=== PATIENT | female | born 1945 | race Caucasian/White ===

== ENCOUNTER 2017-02-23 19:34 | Emergency (ER) | payer MEDICARE, MEDICAID ==
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
[2017-02-23] MEDS ORDERED: Ondansetron ODT TAB* 4 MG PO ONE (21:03)
--- NOTE | 2017-02-23 21:34 | RAD ---
HISTORY: Pain, left foot injury COMPARISONS: None VIEWS: The, Frontal, lateral, and oblique views of the left foot FINDINGS: BONE DENSITY: There is diffuse osteopenia. BONES: There is no displaced fracture. There are calcaneal enthesophytes. JOINTS: There is osteoarthritis of the midfoot and forefoot. ALIGNMENT: There is no dislocation. SOFT TISSUES: Unremarkable. OTHER FINDINGS: None. IMPRESSION: OSTEOPENIA. OSTEOARTHRITIS. NO ACUTE OSSEOUS INJURY. THE DEGREE OF OSTEOPENIA MAY MAKE A NONDISPLACED FRACTURE RADIOGRAPHICALLY OCCULT. IF SYMPTOMS PERSIST, RECOMMEND REPEAT IMAGING.
[2017-02-23 22:03] VITALS: BP 170/81
== END 2017-02-23 23:14 | disposition home or self-care (01) ==
LOC: ED 19:34
DX: S90.32XA Contusion of left foot, initial encounter (principal); V89.1XXA Person injured in unspecified nonmotor-vehicle accident, nontraffic, initial encounter; Y93.9 Activity, unspecified; Y92.9 Unspecified place or not applicable
CPT/HCPCS: 99282; A9270-GY

== ENCOUNTER 2017-06-12 11:01 | Emergency (ER) | payer MEDICARE, MEDICAID ==
[2017-06-12] MEDS ORDERED: oxyCODONE/Acetamin 5/325 MG* TAB PO ONE (11:49)
[2017-06-12 11:51] LABS: Urine Appearance Clear; Urine Blood Negative (Negative); Urine Color Yellow; Urine Ketones Negative (Negative); Urine Protein Negative (Negative); Urine Specific Gravity 1.013 (1.010-1.030); Urine Urobilinogen Negative (Negative)
[2017-06-12 11:58] VITALS: BP 166/97
--- NOTE | 2017-06-12 12:33 | ED ---
Dago Lopez Thomas, scribed for Young Bass MD on 06/12/17 at 1133 . Abdominal Pain/Female - HPI Summary HPI Summary: The patient is a 72 year old female complaining of LLQ abdominal pain that began yesterday. The pain is rated 8/10. The patient had an episode of diarrhea about a week ago. The patient denies nausea, vomiting, and urinary symptoms. She also complains of lower back pain for the last few weeks. Past medical history includes 11 bouts of diverticulitis, and the patient describes the current pain as similar to prior diverticulitis pain. When I ask the patient if she wants imaging done, she prefers not to do imaging and treat her pain as diverticulitis. - History of Current Complaint Chief Complaint: EDAbdPain Stated Complaint: ABD PAIN Time Seen by Provider: 06/12/17 11:24 Hx Obtained From: Patient Onset/Duration: Lasting Days - 1, Still Present Timing: Constant Severity Currently: Moderate Pain Intensity: 8 Pain Scale Used: 0-10 Numeric Location: Discrete At: LLQ Radiates: No Character: Other: - Similar to prior diverticular pain Alleviating Factor(s): Nothing Associated Signs and Symptoms: Positive: Diarrhea. Negative: Fever, Nausea, Vomiting Simlar Episode/Dx as:: Prior diverticulitis Allergies/Adverse Reactions: Allergies Allergy/AdvReac Type Severity Reaction Status Date / Time Adhesive Tape Allergy Redness Verified 06/12/17 11:18 clarithromycin Allergy Muscle Ache Verified 06/12/17 11:18 rice Allergy THROAT Uncoded 06/12/17 11:18 CLOSES PMH/Surg Hx/FS Hx/Imm Hx Endocrine/Hematology History: Reports: Hx Diabetes - DIET CONTROLLED, Hx Systemic Lupus Erythematosus, Hx Thyroid Disease - HYPOTHYROID Cardiovascular History: Reports: Hx Hypercholesterolemia, Hx Hypertension - ON MEDICATION FOR, Hx Rheumatic Fever - A CHILD, Other Cardiovascular Problems/ Disorders - on ECG Denies: Hx Pacemaker/ICD Respiratory History: Reports: Hx Asthma - WILL BRING INHALER- NO PROBLEMS RECENTLY, Hx Sleep Apnea, Other Respiratory Problems/Disorders - sees pulmonogist, per patient lung function about 60% due SARCOIDOSIS GI History: Reports: Hx Diverticulosis, Hx Gall Bladder Disease - s/p cholecystectomy, Other GI Disorders - umbilical hernia, diverticulitis History: Reports: Other Problems/Disorders - HX OF PROBLEMS IN PAST- SEE DR. JUARES- STATES NO PROBLEMS CURRENTLY Musculoskeletal History: Reports: Hx Arthritis - KNEES, Hx Gout, Other Musculoskeletal History - (right) trigger thumb, s/p release 1999 Denies: Hx Osteoporosis Sensory History: Reports: Hx Cataracts - BILATERAL, Hx Contacts or Glasses, Hx Hearing Aid - not with pt, Hx Hearing Problem - left Opthamlomology History: Reports: Hx Cataracts - BILATERAL, Hx Contacts or Glasses Neurological History: Reports: Other Neuro Impairments/Disorders - LUPUS Psychiatric History: Denies: Hx Panic Disorder - Cancer History Cancer Type, Location and Year: skin, nose and chin, removed. rt breast cancer Hx Chemotherapy: Yes Hx Radiation Therapy: Yes - Surgical History Surgery Procedure, Year, and Place: [facility] - release (right) trigger thumb. 06/30 [facility] - mediastinal adenopathy. 06/03 [facility] - umbilical hernia;. all done in 1989 -Hysterectomy; fallopian tube (right) removal, Appendectomy;. Tubal 1981. CHOLECYSTECTOMY; LUMPECTOMY -BI-LATERAL; LYMPH NODE REMOVED. 11/2014, RECTOCELE, [facility]. removal of precancerous polyps, 2/3xs pt reports, prior to 1999. 10/2015-RIGHT BREAST LUMPECTOMY-SENTINEL NODE BIOPSY-[facility] [place] Hx Anesthesia Reactions: No Infectious Disease History: No Infectious Disease History: Denies: Hx of Known/Suspected MRSA, Traveled Outside the in Last 30 Days - Family History Known Family History: Positive: Cardiac Disease, Hypertension, Diabetes, Other - Positive breast CA for mother and sister - Social History Alcohol Use: None Hx Substance Use: No Substance Use Type: Reports: None Hx Tobacco Use: No Smoking Status (MU): Never Smoked Tobacco Have You Smoked in the Last Year: No Review of Systems Negative: Fever Positive: Abdominal Pain, Diarrhea. Negative: Vomiting, Nausea Positive: no symptoms reported All Other Systems Reviewed And Are Negative: Yes Physical Exam - Summary Physical Exam Summary: Appearance: The patient is well-nourished in no acute distress and in no acute pain. Skin: The skin is warm and dry and skin color reflects adequate perfusion. HEENT: The head is normocephalic and atraumatic. The pupils are equal and reactive. The conjunctivae are clear and without drainage. Nares are patent and without drainage. Mouth reveals moist mucous membranes and the throat is without erythema and exudate. The external ears are intact. The ear canals are patent and without drainage. The tympanic membranes are intact. Neck: the neck is supple with full range of motion and non-tender. There are no carotid bruits. There is no neck vein distension. Respiratory: Chest is non-tender. Lungs are clear to auscultation and breath sounds are symmetrical and equal. Cardiovascular: Heart is regular rate and rhythm. There is no murmur or rub auscultated. There is no peripheral edema and pulses are symmetrical and equal. Abdomen: The abdomen is soft. She is tender to her LLQ, although she also mildly tender to her RLQ and LUQ. There are decreased bowel sounds heard in all four quadrants and there is no organomegaly palpated. Musculoskeletal: There is no back tenderness noted. Extremities are non-tender with full range of motion. There is good capillary refill. There is no peripheral edema or calf tenderness elicited. Neurological: Patient is alert and oriented to person, place and time. The patient has symmetrical motor strength in all four extremities. Cranial nerves are grossly intact. Deep tendon reflexes are symmetrical and equal in all four extremities. Psychiatric: The patient has an appropriate affect and does not exhibit any anxiety or depression. Triage Information Reviewed: Yes Vital Signs On Initial Exam: Initial Vitals Temp Pulse Resp BP Pulse Ox 98.5 F 95 22 184/79 98 06/12/17 11:03 06/12/17 11:03 06/12/17 11:03 06/12/17 11:03 06/12/17 11:03 Vital Signs Reviewed: Yes Diagnostics - Vital Signs Vital Signs Temp Pulse Resp BP Pulse Ox 06/12/17 11:03 98.5 F 95 22 184/79 98 - Laboratory Lab Results: Lab Results 06/12/17 Range/Units 11:45 Urine Color Yellow Urine Appearance Clear Urine pH 7.0 (5-9) Ur Specific [place] 1.013 (1.010-1.030) Urine Protein Negative (Negative) Urine Ketones Negative (Negative) Urine Blood Negative (Negative) Urine Nitrate Negative (Negative) Urine Bilirubin Negative (Negative) Urine Urobilinogen Negative (Negative) Ur Leukocyte Esterase Negative (Negative) Urine Glucose Negative (Negative) Lab Statement: Any lab studies that have been ordered have been reviewed, and results considered in the medical decision making process. Abdominal Pain Fem Course/Dx - Course Course Of Treatment: Ms. Krishnan has had diverticulitis 10 times in the recent past and presents with the same symptom complex she has had before. She wants to be treated for diverticulitis and I think that is reasonable given the circumstances. I recommended close F/U in case we are mistaken. - Diagnoses Provider Diagnoses: Diverticulitis Discharge - Discharge Plan Condition: Stable Disposition: HOME Prescriptions: Ciprofloxacin TAB* [Cipro Tab*] 500 mg PO BID #20 tab metroNIDAZOLE [Flagyl 500 MG TAB] 500 mg PO TID #30 tab Patient Education Materials: Diverticulitis (ED), Diverticulitis Diet (ED) Referrals: Law Chapman MD [Primary Care Provider] - 7 Days Additional Instructions: Follow up with your primary care physician in the coming week. Return to the emergency department for any new or worsening symptoms. The documentation as recorded by the Dago denise Thomas accurately reflects the service I personally performed and the decisions made by me, Young Bass MD.
== END 2017-06-12 12:04 | disposition home or self-care (01) ==
LOC: ED 11:01
DX: K57.92 Diverticulitis of intestine, part unspecified, without perforation or abscess without bleeding (principal); Z88.3 Allergy status to other anti-infective agents
CPT/HCPCS: 81003; 99282; A9270-GY

== ENCOUNTER 2018-07-13 19:17 | Emergency (ER) | payer MEDICARE, MEDICAID ==
[2018-07-13 22:45] LABS: Hematocrit 38 % (33-41); Hemoglobin 13.2 g/dL (12.0-16.0); Mean Corpuscular HGB Conc 35 g/dL (31-36); Mean Corpuscular Hemoglobin 32 pg (27-31); Mean Corpuscular Volume 92 fL (80-97); Mean Platelet Volume 6.9 fL (7.4-10.4); Platelet Count 216 10^3/uL (150-450); Red Blood Count 4.11 10^6 /uL (3.70-4.87); Red Cell Distribution Width 15 % (10.5-15); White Blood Count 10.3 10^3/uL (3.5-10.8)
[2018-07-13 22:49] LABS: ABS Basophils 0.1 10^3/ul (0-0.2); ABS Eosinophils 0.3 10^3/ul (0-0.6); ABS Monocytes 0.8 10^3/ul (0-0.8); ABS Neutrophils 6.2 10^3/ul (1.5-7.7); ABS Nucleated RBC 0 10^3/ul; Eosinophil % 2.9 %; Lymphocyte % 29.3 %; Nucleated Red Blood Cells % 0
[2018-07-13 22:55] LABS: Albumin 4.1 g/dL (3.2-5.2); Albumin/Globulin Ratio 1.8 (1-3); BUN/Creatinine Ratio 11.9 (8-20); C Reactive Protein 4.31 mg/L (<8.01); Calcium 9.6 mg/dL (8.6-10.3); EGFR African American 80.9 (>60); EGFR Non-African American 66.8 (>60); Globulin 2.3 g/dL (2-4); Potassium 3.5 mmol/L (3.5-5.0); Total Bilirubin 1.6 mg/dL (0.2-1.0); Total Protein 6.4 g/dL (6.4-8.9)
[2018-07-13] MEDS ORDERED: Ondansetron INJ* 2 MG/ML VIAL IV ONE (23:24)
[2018-07-13] MEDS ORDERED: Morphine 4 MG/ML VIAL (1 ml) 4 MG/ML VIAL IV ONE (23:24)
[2018-07-13] MEDS ORDERED: NS 0.9% 1000 ML** 1,000 ML IV ONE (23:25)
--- NOTE | 2018-07-13 23:28 | ED ---
GI/ HPI - HPI Summary HPI Summary: This patient is a 73 year old F with PMHx of diverticulitis presenting to [facility] with a chief complaint of diverticulitis-like symptoms since a few days ago. The patient rates the pain 4/10 in severity. Patient reports flatulence, diarrhea for a few days (all night long last night, twice since here at [facility]), and diffuse lower abdominal pain. Patient denies vomiting and fever. She has not taken any antibiotics so far. - History of Current Complaint Chief Complaint: EDAbdPain Time Seen by Provider: 07/13/18 23:05 Stated Complaint: DIVERTICULITIS PER PT Hx Obtained From: Patient Onset/Duration: Started Days Ago, Still Present Timing: Constant, Lasting Days Pain Intensity: 4 Location of Pain: Diffuse - Lower abdominal Associated Signs and Symptoms: Positive: Diarrhea - for a few days (all night long last night, twice since here at [facility]), Abdominal Pain - Diffuse lower abdominal, Other: - Flatulence. Negative: Vomiting, Fever - Additional Pertinent History Primary Care Physician: EVERETT - Allergy/Home Medications Allergies/Adverse Reactions: Allergies Allergy/AdvReac Type Severity Reaction Status Date / Time Adhesive Tape AdvReac Redness Verified 07/13/18 19:56 clarithromycin AdvReac Muscle Ache Verified 07/13/18 19:56 rice Allergy THROAT Uncoded 07/13/18 19:56 CLOSES Home Medications: Home Medications Albuterol inh POWDER (NF) [Proair Respiclick] 2 puff INH SEE INSTRUCTIONS PRN [History Confirmed 07/14/18] Amlodipine Besylate [Norvasc] 10 mg PO DAILY 07/14/18 [History Confirmed ] Calcium Carbonate/Vitamin D3 [Calcium 500 + Vit D Caplet] 1 each PO BID [History Confirmed 07/14/18] Levothyroxine Sodium 150 mg PO DAILY 07/14/18 [History Confirmed 07/14/18] Losartan Potassium 100 mg PO DAILY 07/14/18 [History Confirmed 07/14/18] PMH/Surg Hx/FS Hx/Imm Hx Endocrine/Hematology History: Reports: Hx Diabetes - DIET CONTROLLED, Hx Systemic Lupus Erythematosus, Hx Thyroid Disease - HYPOTHYROID Cardiovascular History: Reports: Hx Hypercholesterolemia, Hx Hypertension - ON MEDICATION FOR, Hx Rheumatic Fever - A CHILD, Other Cardiovascular Problems/ Disorders - on ECG Denies: Hx Pacemaker/ICD Respiratory History: Reports: Hx Asthma - WILL BRING INHALER- NO PROBLEMS RECENTLY, Hx Sleep Apnea, Other Respiratory Problems/Disorders - sees pulmonogist, per patient lung function about 60% due SARCOIDOSIS GI History: Reports: Hx Diverticulosis, Hx Gall Bladder Disease - s/p cholecystectomy, Other GI Disorders - umbilical hernia, diverticulitis History: Reports: Hx Renal Disease - ACUTE RENAL FAILURE, Other Problems/ Disorders - HX OF PROBLEMS IN PAST- SEE DR. JUARES- STATES NO PROBLEMS CURRENTLY Musculoskeletal History: Reports: Hx Arthritis - KNEES, Hx Gout, Other Musculoskeletal History - (right) trigger thumb, s/p release 1999 Denies: Hx Osteoporosis Sensory History: Reports: Hx Cataracts - BILATERAL, Hx Contacts or Glasses, Hx Hearing Aid - not with pt, Hx Hearing Problem - left Opthamlomology History: Reports: Hx Cataracts - BILATERAL, Hx Contacts or Glasses Neurological History: Reports: Other Neuro Impairments/Disorders - LUPUS Psychiatric History: Denies: Hx Panic Disorder - Cancer History Cancer Type, Location and Year: skin, nose and chin, removed. rt breast cancer Hx Chemotherapy: Yes Hx Radiation Therapy: Yes - Surgical History Surgery Procedure, Year, and Place: [facility] - release (right) trigger thumb. 06/30 [facility] - mediastinal adenopathy. 06/03 [facility] - umbilical hernia;. all done in 1989 -Hysterectomy; fallopian tube (right) removal, Appendectomy;. Tubal 1981. CHOLECYSTECTOMY; LUMPECTOMY -BI-LATERAL; LYMPH NODE REMOVED. 11/2014, RECTOCELE, [facility]. removal of precancerous polyps, 2/3xs pt reports, prior to 1999. 10/2015-RIGHT BREAST LUMPECTOMY-SENTINEL NODE BIOPSY-[facility] Hx Anesthesia Reactions: No Infectious Disease History: No Infectious Disease History: Denies: Hx of Known/Suspected MRSA, Traveled Outside the [place] in Last 30 Days - Family History Known Family History: Positive: Cardiac Disease, Hypertension, Diabetes, Other - Positive breast CA for mother and sister - Social History Alcohol Use: None Hx Substance Use: No Substance Use Type: Reports: None Hx Tobacco Use: No Smoking Status (MU): Never Smoked Tobacco Have You Smoked in the Last Year: No Review of Systems Negative: Fever Positive: Abdominal Pain - Diffuse lower abdominal pain, Diarrhea - for a few days (all night long last night, twice since here at [facility]), Other - Flatulence. Negative: Vomiting All Other Systems Reviewed And Are Negative: Yes Physical Exam - Summary Physical Exam Summary: VITAL SIGNS: Reviewed. GENERAL: Patient is a well-developed and nourished FEMALE who is lying comfortable in the stretcher. Patient is not in any acute respiratory distress. HEAD AND FACE: No signs of trauma. No ecchymosis, hematomas or skull depressions. No sinus tenderness. EYES: PERRLA, EOMI x 2, No injected conjunctiva, no nystagmus. EARS: Hearing grossly intact. Ear canals and tympanic membranes are within normal limits. MOUTH: Oropharynx within normal limits. NECK: Supple, trachea is midline, no adenopathy, no JVD, no carotid bruit, no c- spine tenderness, neck with full ROM. CHEST: Symmetric, no tenderness at palpation LUNGS: Clear to auscultation bilaterally. No wheezing or crackles. CVS: Regular rate and rhythm, S1 and S2 present, no murmurs or gallops appreciated. ABDOMEN: Soft. No signs of distention. No rebound no guarding, and no masses palpated. Bowel sounds are normal. Lower abdominal tenderness. Left mid-abdomen tenderness EXTREMITIES: FROM in all major joints, no edema, no cyanosis or clubbing. NEURO: Alert and oriented x 3. No acute neurological deficits. Speech is normal and follows commands. SKIN: Dry and warm Triage Information Reviewed: Yes Vital Signs On Initial Exam: Initial Vitals Temp Pulse Resp BP Pulse Ox 98.2 F 75 16 146/66 97 07/13/18 19:45 07/13/18 19:45 07/13/18 19:45 07/13/18 19:45 07/13/18 19:45 Vital Signs Reviewed: Yes Diagnostics - Vital Signs Vital Signs Temp Pulse Resp BP Pulse Ox 07/13/18 21:55 97.6 F 75 16 135/51 99 07/13/18 19:45 98.2 F 75 16 146/66 97 - Laboratory Lab Results: Lab Results 07/13/18 07/13/18 07/13/18 Range/Units 22:30 22:30 22:30 WBC 10.3 (3.5-10.8) 10^3/uL RBC 4.11 (3.70-4.87) 10^6 /uL Hgb 13.2 (12.0-16.0) g/dL Hct 38 (33-41) % MCV 92 (80-97) fL MCH 32 H (27-31) pg MCHC 35 (31-36) g/dL RDW 15 (10.5-15) % Plt Count 216 (150-450) 10^3/uL MPV 6.9 L (7.4-10.4) fL Neut % (Auto) 59.9 % Lymph % (Auto) 29.3 % [place] % (Auto) 7.4 % Eos % (Auto) 2.9 % Baso % (Auto) 0.5 % Absolute Neuts (auto) 6.2 (1.5-7.7) 10^3/ul Absolute Lymphs (auto) 3.0 (1.0-4.8) 10^3/ul Absolute Monos (auto) 0.8 (0-0.8) 10^3/ul Absolute Eos (auto) 0.3 (0-0.6) 10^3/ul Absolute Basos (auto) 0.1 (0-0.2) 10^3/ul Absolute Nucleated RBC 0 10^3/ul Nucleated RBC % 0 Sodium 141 (135-145) mmol/L Potassium 3.5 (3.5-5.0) mmol/L Chloride 108 (101-111) mmol/L Carbon Dioxide 27 (22-32) mmol/L Anion Gap 6 (2-11) mmol/L BUN 10 (6-24) mg/dL Creatinine 0.84 (0.51-0.95) mg/dL Est GFR ( Amer) 80.9 (>60) Est GFR (Non-Af Amer) 66.8 (>60) BUN/Creatinine Ratio 11.9 (8-20) Glucose 130 H (70-100) mg/dL Lactic Acid 0.7 (0.5-2.0) mmol/L Calcium 9.6 (8.6-10.3) mg/dL Total Bilirubin 1.60 H (0.2-1.0) mg/dL AST 16 (13-39) U/L ALT 14 (7-52) U/L Alkaline Phosphatase 73 (34-104) U/L C-Reactive Protein 4.31 (<8.01) mg/L Total Protein 6.4 (6.4-8.9) g/dL Albumin 4.1 (3.2-5.2) g/dL Globulin 2.3 (2-4) g/dL Albumin/Globulin Ratio 1.8 (1-3) Lipase 14 (11.0-82.0) U/L Result Diagrams: 07/13/18 22:30 07/13/18 22:30 Lab Statement: Any lab studies that have been ordered have been reviewed, and results considered in the medical decision making process. - CT Abdomen/Pelvis CT CT Interpretation Completed By: Radiologist Summary of CT Findings: 00:56. 1. Question of minimal nonspecific pancolitis which is greatest in the sigmoid. and rectum, new since 02/04/2016. 2. Sigmoid diverticulosis with greatest inflammatory change involving the mid. sigmoid which may reflect greater involvement of generalized colitis. Minimal. diverticulitis is not excluded. There is trace pelvic fluid adjacent to the. sigmoid which is likely reactive. 3. There has been prior cholecystectomy and hysterectomy which is similar to. the prior study. ED Physician has reviewed this imaging report. Re-Evaluation - Re-Evaluation 1 Re-Evaluation Time: 02:25 Change: Improved Comment: Pt feels better with medication. GIGU Course/Dx - Course Course Of Treatment: This patient is a 73 year old F with PMHx of diverticulitis presenting to [facility] with a chief complaint of diverticulitis- like symptoms since a few days ago. Pt did not have any diarrhea after beeing seen in the room in [facility]. She feels better after being medicated. She will be d/c home with medication and dx of diverticulitis and colitis. - Diagnoses Provider Diagnoses: Diverticulitis, Colitis Discharge - Sign-Out/Discharge Documenting (check all that apply): Patient Departure - D/C home Patient Received Moderate/Deep Sedation with Procedure: No - Discharge Plan Condition: Stable Disposition: HOME Prescriptions: Levofloxacin TAB* [Levaquin TAB*] 500 mg PO DAILY #7 tab metroNIDAZOLE [Flagyl 500 MG TAB] 500 mg PO TID #20 tab Patient Education Materials: Diverticulitis (ED), Colitis (ED) Referrals: Law Chapman MD [Primary Care Provider] - 2 Days Additional Instructions: PLEASE RETURN TO THE ED TO IMMEDIATELY FOR WORSENING OR CONCERNING SYMPTOMS. - Attestation Statements Document Initiated by Scribe: Yes Documenting Scribe: Tulio Basurto Provider For Whom Scribe is Documenting (Include Credential): Laxmi Youngblood MD Scribe Attestation: I, Tulio Basurto, scribed for Laxmi Youngblood MD on 07/14/18 at 0227. Status of Scribe Document: Ready
[2018-07-13] MEDS ORDERED: Iodixanol* (CONTRAST) 320 MG/ML 100 ML SDV IV ONE (23:42)
[2018-07-14] MEDS ORDERED: metroNIDAZOLE TAB* 250 MG PO ONE (02:23)
[2018-07-14] MEDS ORDERED: Levofloxacin TAB* 500 MG PO ONE (02:24)
[2018-07-14 02:50] VITALS: BP 129/70
== END 2018-07-14 02:55 | disposition home or self-care (01) ==
LOC: ED 19:17
DX: K57.92 Diverticulitis of intestine, part unspecified, without perforation or abscess without bleeding (principal); K52.9 Noninfective gastroenteritis and colitis, unspecified; E11.9 Type 2 diabetes mellitus without complications; M32.9 Systemic lupus erythematosus, unspecified; I10 Essential (primary) hypertension; Z85.3 Personal history of malignant neoplasm of breast
CPT/HCPCS: 36415; 74177; 80053; 83605; 83690; 85025; 86140; 96361; 96374; 96375; 99283; A9270-GY; J2270; J2405; Q9967

== ENCOUNTER 2018-09-26 19:57 | Emergency (ER) | payer MEDICARE, MEDICAID ==
[2018-09-26] MEDS ORDERED: Morphine 4 MG/ML VIAL (1 ml) 4 MG/ML VIAL IV ONE (20:43)
--- NOTE | 2018-09-26 21:13 | ED ---
Abdominal Pain/Female - HPI Summary HPI Summary: The patient is a 73 year old F brought in by EMS to [facility] with a chief complaint of abdominal pain since 09/16/18, worsening since last night, 09/25/18, and into today. The pain is rated a 4/10 in severity. The pt reports receiving medications for a UTI and diverticulosis that did not alleviate her symptoms last Tuesday and has been on two other medications since, starting her first dose today. She was Dxed by her PCP where she was positive for a UTI through an UA and diverticulitis. She returned to her PCP Tuesday09/22/18 for abdominal pain, and cramps while urinating and was seen by Dr. Stewart. She began vomiting last night and today but denies any dysuria and hematuria. Dr. Stewart called EMS today after following up with the pt. The pt reports that she has a Hx of Lupus and DM but has been off medications for DM for a long time. - History of Current Complaint Chief Complaint: EDAbdPain Stated Complaint: ABD PAIN PER EMS Time Seen by Provider: 09/26/18 20:11 Hx Obtained From: Patient Onset/Duration: Gradual Onset, Lasting Weeks - 2, Worse Since - tuesday09/22/18 Timing: Constant Severity Initially: Moderate Severity Currently: Moderate Pain Intensity: 4 Pain Scale Used: 0-10 Numeric Location: Diffuse Radiates: No Character: Cramping - occurred while urination Aggravating Factor(s): Nothing Alleviating Factor(s): Nothing - Medications did not help symptoms Associated Signs and Symptoms: Positive: Vomiting - yesterday and today, Other: - NEGATIVE for constipation, POSITIVE for abdominal pain. Was Dx with. Negative : Urinary Symptoms - no Hematuria or dysuria, Nausea Allergies/Adverse Reactions: Allergies Allergy/AdvReac Type Severity Reaction Status Date / Time Adhesive Tape AdvReac Redness Verified 07/13/18 19:56 clarithromycin AdvReac Muscle Ache Verified 07/13/18 19:56 rice Allergy THROAT Uncoded 07/13/18 19:56 CLOSES Home Medications: Home Medications Amoxicillin/Clavulanate TAB* [Augmentin TAB 875*] 875 mg PO BID 09/26/18 [ History Confirmed 09/26/18] Levofloxacin TAB* [Levaquin TAB*] 500 mg PO BID 09/26/18 [History Confirmed 08/11] PMH/Surg Hx/FS Hx/Imm Hx Previously Healthy: No Endocrine/Hematology History: Reports: Hx Diabetes - DIET CONTROLLED, Hx Systemic Lupus Erythematosus, Hx Thyroid Disease - HYPOTHYROID Cardiovascular History: Reports: Hx Hypercholesterolemia, Hx Hypertension - ON MEDICATION FOR, Hx Rheumatic Fever - A CHILD, Other Cardiovascular Problems/ Disorders - on ECG Denies: Hx Pacemaker/ICD Respiratory History: Reports: Hx Asthma - WILL BRING INHALER- NO PROBLEMS RECENTLY, Hx Sleep Apnea, Other Respiratory Problems/Disorders - sees pulmonogist, per patient lung function about 60% due SARCOIDOSIS GI History: Reports: Hx Diverticulosis, Hx Gall Bladder Disease - s/p cholecystectomy, Other GI Disorders - umbilical hernia, diverticulitis History: Reports: Hx Renal Disease - ACUTE RENAL FAILURE, Other Problems/ Disorders - HX OF PROBLEMS IN PAST- SEE DR. JUARES- STATES NO PROBLEMS CURRENTLY Musculoskeletal History: Reports: Hx Arthritis - KNEES, Hx Gout, Other Musculoskeletal History - (right) trigger thumb, s/p release 1999 Denies: Hx Osteoporosis Sensory History: Reports: Hx Cataracts - BILATERAL, Hx Contacts or Glasses, Hx Hearing Aid - not with pt, Hx Hearing Problem - left Opthamlomology History: Reports: Hx Cataracts - BILATERAL, Hx Contacts or Glasses Neurological History: Reports: Other Neuro Impairments/Disorders - LUPUS Psychiatric History: Denies: Hx Panic Disorder - Cancer History Cancer Type, Location and Year: skin, nose and chin, removed. rt breast cancer Hx Chemotherapy: Yes Hx Radiation Therapy: Yes - Surgical History Surgery Procedure, Year, and Place: [facility] - release (right) trigger thumb. 06/30 [facility] - mediastinal adenopathy. 06/03 [facility] - umbilical hernia;. all done in 1989 -Hysterectomy; fallopian tube (right) removal, Appendectomy;. Tubal 1981. CHOLECYSTECTOMY; LUMPECTOMY -BI-LATERAL; LYMPH NODE REMOVED. 11/2014, RECTOCELE, [facility]. removal of precancerous polyps, 2/3xs pt reports, prior to 1999. 10/2015-RIGHT BREAST LUMPECTOMY-SENTINEL NODE BIOPSY-[facility] [place] Hx Anesthesia Reactions: No Infectious Disease History: No Infectious Disease History: Denies: Hx of Known/Suspected MRSA, Traveled Outside the [place] in Last 30 Days - Family History Known Family History: Positive: Cardiac Disease, Hypertension, Diabetes, Other - Positive breast CA for mother and sister - Social History Alcohol Use: None Hx Substance Use: No Substance Use Type: Reports: None Hx Tobacco Use: No Smoking Status (MU): Never Smoked Tobacco Have You Smoked in the Last Year: No Review of Systems Positive: Abdominal Pain, Vomiting, Nausea. Negative: Diarrhea Genitourinary: Other - Positive: cramping while peeing Negative: dysuria, hematuria All Other Systems Reviewed And Are Negative: Yes Physical Exam - Summary Physical Exam Summary: Appearance: Well-appearing, Well-nourished, lying in bed comfortably Skin: Warm, dry, no obvious rash Eyes: sclera anicteric, no conjunctival pallor ENT: mucous membranes moist, pharynx appears normal Neck: Supple, nontender Respiratory: Clear to auscultation, no signs of respiratory distress Cardiovascular: Normal S1, S2. No murmurs. Normal distal pulses in tibial and radial bilaterally. Abdomen: Soft, tender without peritoneal tenderness, normal active bowel sounds present Musculoskeletal: Normal, Strength/ROM Intact Neurological: A&Ox3, awake and alert, mentation is normal, speech is fluent and appropriate Psychiatric: affect is normal, does not appear anxious or depressed Triage Information Reviewed: Yes Vital Signs On Initial Exam: Initial Vitals Temp Pulse Resp BP Pulse Ox 99.3 F 95 20 95/59 94 09/26/18 20:03 09/26/18 20:03 09/26/18 20:03 09/26/18 20:03 09/26/18 20:03 Vital Signs Reviewed: Yes Diagnostics - Vital Signs Vital Signs Temp Pulse Resp BP Pulse Ox 09/26/18 20:47 20 09/26/18 20:18 92 19 92 09/26/18 20:03 99.3 F 95 20 95/59 94 - Laboratory Result Diagrams: 09/26/18 21:14 09/26/18 21:14 Lab Statement: Any lab studies that have been ordered have been reviewed, and results considered in the medical decision making process. - CT CT A/P CT Interpretation Completed By: Radiologist Summary of CT Findings: Mediastinum: Minimal hiatal hernia. ED Physician has reviewed this report. - EKG 2034 Cardiac Rate: NL - 90 BPM EKG Rhythm: Sinus Rhythm ST Segment: Normal Ectopy: None Summary of EKG Findings: NSR at 90 BPM, P waves, QRS complex, and T waves are within normal limits, T waves and intervals are normal, no ischemic changes. This is a normal EKG Re-Evaluation - Re-Evaluation First Eval Re-Evaluation Time: 01:26 Change: Improved Comment: I informed the pt of the discharge plan. She was agreeable and will be discharged home. SHe was informed to coninue her ABX perscription from Dr. Chapman and to follow up with him within 3 days. The pt was also informed to return to the ED with any new or worsening symptoms. Abdominal Pain Fem Course/Dx - Course Course Of Treatment: The patient is a 73 year old F brought in by EMS to [facility] with a chief complaint of abdominal pain since 09/16/18, worsening since last night, 09/25/18, and into today. The pain is rated a 4/10 in severity. The pt reports receiving medications for a UTI and diverticulosis that did not alleviate her symptoms last Tuesday and has been on two other medications since , starting her first dose today. She received an EKG that showed a NSR at 90 BPM , P waves, QRS complex, and T waves are within normal limits, T waves and intervals are normal, no ischemic changes. This is a normal EKG. She has abnormal findings in WBC, Hgb, MCH, Absolute neuts, Absolute lymphs, Absolute monos, sodium, creatinine, glucose, lactic acid, total bilirubin, C-Reactive protein, total protein, and Lipase. She received a CT A/P which shows a Mediastinum: Minimal hiatal hernia. The pt will be discharged home with a Dx of a UTI and given instructions to continue care ordered by her PCP. The pt will also be informed to follow up with her PCP and to return to the ED with any new or worsening symptoms. - Diagnoses Provider Diagnoses: UTI (urinary tract infection) Discharge - Sign-Out/Discharge Documenting (check all that apply): Patient Departure - discharge Patient Received Moderate/Deep Sedation with Procedure: No - Discharge Plan Condition: Stable Disposition: HOME Patient Education Materials: Urinary Tract Infection in Older Adults (ED) Referrals: Law Chapman MD [Medical Doctor] - Additional Instructions: Continue the antibiotics prescribed by your doctor. I would suspect they sent a urine culture from the office, so that test will provide further information over the next few days if you don't continue to improve. Fortunately the CT scan did not show any signs of diverticulitis, just some inflammation about the bladder that does not surprise me given the UTI. If you do start to feel sicker though sometimes we do have to hospitalize people for these infections. - Billing Disposition and Condition Condition: STABLE Disposition: Home - Attestation Statements Document Initiated by Soraya: Yes Documenting Scribe: Trevor Doherty Provider For Whom Scribe is Documenting (Include Credential): Amanda Hong MD Scribe Attestation: I, Trevor Doherty, scribed for Amanda Hong MD on 09/27/18 at 0515. Scribe Documentation Reviewed: Yes Provider Attestation: The documentation as recorded by the Trevor denise accurately reflects the service I personally performed and the decisions made by me, Amanda Hong MD Status of Scribe Document: Viewed
[2018-09-26 21:24] LABS: ABS Lymphocytes 0.7 10^3/ul (1.0-4.8); ABS Monocytes 1.2 10^3/ul (0-0.8); ABS Neutrophils 10.7 10^3/ul (1.5-7.7); Hematocrit 35 % (35-47); Hemoglobin 11.9 g/dL (12.0-16.0); Lymphocyte % 5.8 %; Mean Corpuscular HGB Conc 34 g/dL (31-36); Mean Corpuscular Hemoglobin 32 pg (27-31); Mean Corpuscular Volume 94 fL (80-97); Mean Platelet Volume 7.5 fL (7.4-10.4); Platelet Count 174 10^3/uL (150-450); Red Blood Count 3.71 10^6 /uL (3.70-4.87); Red Cell Distribution Width 14 % (10.5-15); White Blood Count 12.7 10^3/uL (3.5-10.8)
[2018-09-26 21:41] LABS: ALT 10 U/L (7-52); AST 15 U/L (13-39); Albumin 3.6 g/dL (3.2-5.2); Albumin/Globulin Ratio 1.5 (1-3); Alkaline Phosphatase 57 U/L (34-104); Anion Gap 7 mmol/L (2-11); BUN/Creatinine Ratio 12.6 (8-20); Blood Urea Nitrogen 19 mg/dL (6-24); C Reactive Protein 117.41 mg/L (<8.01); CO2 Carbon Dioxide 23 mmol/L (22-32); Calcium 9.1 mg/dL (8.6-10.3); Chloride 101 mmol/L (101-111); EGFR African American 41.1 (>60); Globulin 2.4 g/dL (2-4); Glucose 148 mg/dL (70-100); Potassium 4.6 mmol/L (3.5-5.0); Sodium 131 mmol/L (135-145)
[2018-09-26] MEDS ORDERED: Iodixanol* (CONTRAST) 320 MG/ML 100 ML SDV IV ONE (22:34)
[2018-09-27 01:06] LABS: Urine Appearance Turbid; Urine Bilirubin Negative (Negative); Urine Blood 1+ (Negative); Urine Color Amber; Urine Glucose Negative (Negative); Urine Ketones Negative (Negative); Urine Nitrite Negative (Negative); Urine Protein 2+(100 mg/dL) (Negative); Urine Specific Gravity 1.034 (1.010-1.030); Urine Urobilinogen Negative (Negative)
[2018-09-27 01:13] LABS: Urine Bacteria 2+ (Absent); Urine Red Blood Cell 2+(6-10/hpf) (Absent); Urine Squamous Epithelial Cell Present (Absent); Urine White Blood Cell 3+(>20/hpf) (Absent)
[2018-09-27 01:45] VITALS: BP 117/61
== END 2018-09-27 02:04 | disposition home or self-care (01) ==
LOC: ED 19:57
DX: N39.0 Urinary tract infection, site not specified (principal); R10.9 Unspecified abdominal pain; R11.10 Vomiting, unspecified; E11.9 Type 2 diabetes mellitus without complications; Z87.39 Personal history of other diseases of the musculoskeletal system and connective tissue
CPT/HCPCS: 36415; 74177; 80053; 81003; 81015; 83605; 83690; 85025; 86140; 93005; 96374; 99284; J2270; Q9967

== ENCOUNTER 2019-01-17 07:46 | Day surgery (SDC) | payer MEDICARE, MEDICAID ==
[~2019-01-17 07:46] MED LIST: Acetaminophen TAB* 325 MG PO PRN; Buffered Lidocaine 1% SYRIN* 1 ML/SYRINGE INTRADERM ONE
[2019-01-17] MEDS ORDERED: Midazolam* 1 MG/ML 5 ML VIAL (5 MG) ONE (08:03)
[2019-01-17] MEDS ORDERED: fentaNYL* 50 MCG/ML 2 ML VIAL (100 MCG VIAL) ONE (08:03)
[2019-01-17 11:43] VITALS: BP 132/60
[2019-01-17] MEDS ORDERED: acetaZOLAMIDE TAB* 250 MG ONE (12:53)
[2019-01-17] MEDS ORDERED: Ketorolac 0.5% OPHTH (NF) 0.5 % 5 ML BTL ONE (12:53)
[2019-01-17] MEDS ORDERED: Lidocaine 1% MPF ** 5 ML VIAL ONE (12:53)
[2019-01-17] MEDS ORDERED: Povidone Iodine 5% OPTH* 30 ML BTL ONE (12:53)
[2019-01-17] MEDS ORDERED: Proparacaine 0.5% OPHTH.SOL* 15 ML BTL ONE (12:53)
[2019-01-17] MEDS ORDERED: Cyclopentolate 1% OPTH.SOL* 2 ML BTL ONE (12:53)
[2019-01-17] MEDS ORDERED: Neomycin/Polymy/Dex OPTH.SUSP* MAXITROL 0.1% 5 ML ONE (12:53)
[2019-01-17] MEDS ORDERED: Lidocaine 2% w/ EPI 1:200,000* 20 ML SDV VIAL ONE (12:53)
[2019-01-17] MEDS ORDERED: Phenylephrine OPHTH SOL 2.5%* 2 ML ONE (12:53)
--- NOTE | 2019-01-17 14:06 | OP ---
DATE OF OPERATION: 01/17/19 - [facility] DATE OF : 49 SURGEON: Ki Abdalla MD PREOPERATIVE DIAGNOSIS: Cataract, left eye. POSTOPERATIVE DIAGNOSIS: Cataract, left eye. OPERATIVE PROCEDURE: Extracapsular cataract extraction with intraocular lens implant, left eye. DESCRIPTION OF PROCEDURE: The patient was brought to the operating room after being given 1/2% Alcaine with epinephrine drops in the preoperative area. The eye was prepped and draped in the usual sterile fashion. Sterile drape and eyelid speculum were placed. Again, topical 1/2% Alcaine with epinephrine was given. A paracentesis incision was made at the 3 o'clock position with the No.75 blade. Clear cornea incision 2.2 x 2.2-mm was created at the 6 o'clock position starting at the anterior limbus using the 2.2-mm keratome. The anterior chamber was irrigated with 0.4 mL of 1% non-preservative intracameral lidocaine and filled with DisCoVisc. A capsulorrhexis was completed using the cystotome and the Utrata forceps. Hydrodissection was performed with balanced salt solution. The lens nucleus was removed with the Phacoemulsification handpiece without incident. Cortex was removed with the irrigation-aspiration handpiece. The capsular bag was re-inflated using DisCoVisc and an [id number] implant was inserted with the shooter. The irrigation-aspiration handpiece was used to remove all residual DisCoVisc. The eye was refilled with balanced salt solution and the wound checked and found to be watertight. Topical Maxitrol drops were given. [id number]/[facility] #: [id number] MTDD
== END 2019-01-17 10:18 | disposition home or self-care (01) ==
LOC: OREAST 07:46
PROVIDERS: ATTEND Specialist
DX: Z01.818 Encounter for other preprocedural examination (principal); H25.13 Age-related nuclear cataract, bilateral; E11.9 Type 2 diabetes mellitus without complications; M32.9 Systemic lupus erythematosus, unspecified; I10 Essential (primary) hypertension; E03.9 Hypothyroidism, unspecified; G89.4 Chronic pain syndrome; Z79.899 Other long term (current) drug therapy; Z85.3 Personal history of malignant neoplasm of breast; Z23 Encounter for immunization
CPT/HCPCS: A9270-GY; J2250; J3010; V2632

== ENCOUNTER 2019-01-24 06:41 | Day surgery (SDC) | payer MEDICARE, MEDICAID ==
[~2019-01-24 06:41] MED LIST changes: -Acetaminophen TAB* 325 MG PO PRN
[2019-01-24] MEDS ORDERED: Cyclopentolate 1% OPTH.SOL* 2 ML BTL ONE (08:08)
[2019-01-24] MEDS ORDERED: acetaZOLAMIDE TAB* 250 MG ONE (08:08)
[2019-01-24] MEDS ORDERED: Proparacaine 0.5% OPHTH.SOL* 15 ML BTL ONE (08:08)
[2019-01-24] MEDS ORDERED: Lidocaine 2% w/ EPI 1:200,000* 20 ML SDV VIAL ONE (08:08)
[2019-01-24] MEDS ORDERED: Phenylephrine OPHTH SOL 2.5%* 2 ML ONE (08:08)
[2019-01-24] MEDS ORDERED: Povidone Iodine 5% OPTH* 30 ML BTL ONE (08:08)
[2019-01-24] MEDS ORDERED: Ketorolac 0.5% OPHTH (NF) 0.5 % 5 ML BTL ONE (08:08)
[2019-01-24] MEDS ORDERED: Neomycin/Polymy/Dex OPTH.SUSP* MAXITROL 0.1% 5 ML ONE (08:08)
[2019-01-24] MEDS ORDERED: Lidocaine 1% MPF ** 5 ML VIAL ONE (08:08)
[2019-01-24] MEDS ORDERED: Midazolam* 1 MG/ML 2 ML VIAL (2 MG) ONE ×2 (08:14→08:33)
[2019-01-24 09:53] VITALS: BP 144/68
--- NOTE | 2019-01-24 10:25 | OP ---
DATE OF OPERATION: 01/24/2019. DATE OF : 1945. SURGEON: Ki Abdalla M.D. PREOPERATIVE DIAGNOSIS: Cataract right eye. POSTOPERATIVE DIAGNOSIS: Cataract right eye. OPERATIVE PROCEDURE: Extracapsular cataract extraction with intraocular lens implant right eye. PROCEDURE: The patient was brought to the operating room after being given 1/2% Alcaine with epineph rine drops in the preoperative area. The eye was prepped and draped in the usual sterile fashion. S terile drape and eyelid speculum were placed. Again, topical 1/2% Alcaine with epinephrine was given . A paracentesis incision was made at the 9 o'clock position with the No.75 blade. Clear cornea inc ision 2.2 x 2.2-mm was created at the 12 o'clock position starting at the anterior limbus using the 2 .2-mm keratome. The anterior chamber was irrigated with 0.4 mL of 1% non-preservative intracameral l idocaine and filled with DisCoVisc. A capsulorrhexis was completed using the cystotome and the Utrat a forceps. Hydrodissection was performed with balanced salt solution. The lens nucleus was removed w ith the Phacoemulsification handpiece without incident. Cortex was removed with the irrigation-aspir ation handpiece. The capsular bag was re-inflated using DisCoVisc and an SN60WF 18.5 implant was ins erted with the shooter. The irrigation-aspiration handpiece was used to remove all residual DisCoVis c. The eye was refilled with balanced salt solution and the wound checked and found to be watertight . Topical Maxitrol drops were given. [id number]/[facility] #: [id number]
== END 2019-01-24 09:12 | disposition home or self-care (01) ==
LOC: OREAST 06:41
PROVIDERS: ATTEND Specialist
DX: H25.11 Age-related nuclear cataract, right eye (principal); M32.9 Systemic lupus erythematosus, unspecified; Z79.899 Other long term (current) drug therapy; E11.9 Type 2 diabetes mellitus without complications; G47.33 Obstructive sleep apnea (adult) (pediatric); I10 Essential (primary) hypertension; E03.9 Hypothyroidism, unspecified; G89.4 Chronic pain syndrome; Z85.3 Personal history of malignant neoplasm of breast; J45.909 Unspecified asthma, uncomplicated; K21.9 Gastro-esophageal reflux disease without esophagitis; M19.90 Unspecified osteoarthritis, unspecified site
CPT/HCPCS: A9270-GY; J2250; V2632

== ENCOUNTER 2019-06-28 09:00 | Inpatient (IN) | payer MEDICARE, MEDICAID ==
--- NOTE | 2019-06-20 14:52 | HP ---
HISTORY AND PHYSICAL: DATE OF ADMISSION/SURGERY: 06/28/19 DATE OF OFFICE VISIT: 06/20/19 SURGEON: Sugar Gonzalez MD * (DICTATED BY NANCY CONDE) PROCEDURE: Left total knee arthroplasty. CHIEF COMPLAINT: Left knee pain. HISTORY OF PRESENT ILLNESS: Ms. Krishnan is a 74-year-old female with end-stage osteoarthritis of the left knee. She has failed conservative treatment and elected to proceed with a left total knee arthroplasty. PAST MEDICAL HISTORY: History of acute renal failure, stage 3 kidney disease, chronic pain, hypertension, high cholesterol, diabetes, GERD, hypothyroidism, asthma, lupus, sarcoidosis, and history of breast cancer. PAST SURGICAL HISTORY: Lumpectomy, hysterectomy, cholecystectomy, appendectomy , and hernia repair. CURRENT MEDICATIONS: 1. Percocet 5/325 four times a day. 2. Morphine sulfate 30 mg extended release twice a day. 3. Oxybutynin 10 mg daily. 4. Losartan potassium 100 mg daily. 5. Hydroxychloroquine 200 mg twice a day. 6. Pravastatin sodium 10 mg a day. 7. Ranitidine 150 mg twice a day. 8. Synthroid 150 mcg daily. 9. Anastrozole 1 mg a day. 10. Amlodipine 10 mg daily. 11. Allopurinol 300 mg daily. 12. Amiloride 5 mg daily. 13. Calcium with vitamin D. 14. Magnesium oxide. 15. Albuterol as needed. ALLERGIES: To BIAXIN. FAMILY HISTORY: Diabetes, coronary artery disease, and cancer. SOCIAL HISTORY: She is a 74-year-old female. Her son lives with her. She does not smoke. REVIEW OF SYSTEMS: A complete 14-point review of systems was reviewed with the patient. It was positive for diabetes, hypothyroidism, GERD, asthma, stage 3 kidney disease and some occasional shortness of breath. She denies history of PE, DVT, hepatitis, HIV, or anesthesia problems. PHYSICAL EXAMINATION GENERAL: She is well developed, well nourished, in no acute distress. VITAL SIGNS: She stands 64 inches tall, weighs 239 pounds. Her blood pressure is 134/70, heart rate is 82. HEENT: Normocephalic, atraumatic. NECK: Supple. No palpable lymph nodes. PULMONARY: The lungs are clear to auscultation bilaterally. CARDIO: Regular rate and rhythm. Strong S1, S2. ABDOMEN: Soft, nontender, nondistended. NEUROLOGICAL: She is alert and oriented x3. MUSCULOSKELETAL: Left lower extremity: The skin is intact. There are no open wounds or abrasions. Some moderate effusion of the left knee joint, some tenderness along the medial and lateral joint line. Range of motion is 15 to 110 degrees of flexion with patellofemoral crepitus. She is able to dorsiflex and plantarflex, has a 2+ dorsalis pedis pulse and intact sensation. ASSESSMENT AND PLAN: Ms. Krishnan is a 74-year-old female with end-stage osteoarthritis of the left knee. She has failed conservative treatment and elected to proceed with a left total knee arthroplasty. The surgery is scheduled for 06/28/[address] Gonzalez discussed the risks and benefits of the surgery at today's visit and all of her questions were answered. She will follow up with Dr. Gonzalez 2 weeks after the surgery. No TXA will be used in this patient. NANCY CONDE [id number]/[facility] #: [id number] MTDKelechi
[~2019-06-28 09:00] MED LIST changes: -Buffered Lidocaine 1% SYRIN* 1 ML/SYRINGE INTRADERM ONE; +Famotidine IV* 10 MG/ML 2 ML (20 mg) IV ONE; +Lactated Ringers 1000 ML Bag* 1,000 ML IV SCH
[2019-06-28] MEDS ORDERED: ceFAZolin 2 GM PREMIX in ORs 2 GM/50 ML BAG ONE (13:00)
[2019-06-28] MEDS ORDERED: Famotidine IV* 10 MG/ML 2 ML (20 mg) ONE (13:00)
[2019-06-28] MEDS ORDERED: Midazolam* 1 MG/ML 5 ML VIAL (5 MG) ONE (13:06)
[2019-06-28] MEDS: Buffered Lidocaine 1% SYRIN* 1 ML/SYRINGE INTRADERM ONE ×2 (13:23→13:26)
[2019-06-28] MEDS ORDERED: Lidocaine 1% MPF ** 5 ML VIAL ONE (14:09)
[2019-06-28] MEDS ORDERED: ROPIVACAINE 5 MG/ML 30 ML BTL (0.5%) ONE ×2 (14:10→16:21)
[2019-06-28] MEDS ORDERED: fentaNYL* 50 MCG/ML 2 ML VIAL (100 MCG VIAL) ONE (14:24)
[2019-06-28] MEDS ORDERED: Rocuronium* 10 MG/ML VIAL ONE (14:56)
[2019-06-28] MEDS ORDERED: KETAMINE HCL* 50 MG/ML 10 ML VIAL ONE (15:05)
[2019-06-28] MEDS ORDERED: Magnesium Hydroxide LIQ* 30 ML UDC PO PRN (15:53)
[2019-06-28] MEDS ORDERED: diPHENhydraMINE PO* 25 MG PO PRN (15:53)
[2019-06-28] MEDS ORDERED: Ondansetron INJ* 2 MG/ML VIAL IV PRN (15:53)
[2019-06-28] MEDS ORDERED: Ondansetron ODT TAB* 4 MG PO PRN (15:53)
[2019-06-28] MEDS ORDERED: diPHENhydraMINE IV* 50 MG/ML 1 ml VIAL (BENADRYL) IV PRN (15:53)
[2019-06-28] MEDS ORDERED: Morphine INJ* 2 MG/ML 1 ML SYRINGE (TWO MG - NEW SYRINGE VERSION) IV PRN (15:53)
[2019-06-28] MEDS ORDERED: Acetaminophen TAB* 325 MG PO PRN (15:53)
[2019-06-28] MEDS ORDERED: Cyclobenzaprine TAB* 10 MG PO PRN (15:53)
[2019-06-28] MEDS ORDERED: oxyCODONE/Acetamin 5/325 MG* TAB PO PRN ×2 (15:53)
[2019-06-28] MEDS ORDERED: DiMENhydriNATE IV* 50 MG/ML VIAL ONE (15:56)
[2019-06-28] MEDS ORDERED: Dexamethasone IV* 4 MG/ML 1 ML (4 MG) ONE (15:56)
[2019-06-28] MEDS ORDERED: Propofol* 10 MG/ML 20 ML BTL ONE (15:56)
[2019-06-28] MEDS ORDERED: Ketorolac INJ* 30 MG/ML 1 ML VIAL ONE (15:56)
[2019-06-28] MEDS ORDERED: Ondansetron INJ* 2 MG/ML VIAL ONE (15:56)
[2019-06-28] MEDS ORDERED: Lidocaine 2% PF * 5 ML VIAL ONE (15:56)
[2019-06-28] MEDS ORDERED: Succinylcholine* 20 MG/ML 10 ML VIAL ONE (15:56)
[2019-06-28] MEDS ORDERED: oxyCODONE TAB* 5 MG TAB PO PRN (16:21)
[2019-06-28] MEDS ORDERED: Naloxone* 0.4 MG/ML 1 ML VIAL IV PRN (16:21)
[2019-06-28] MEDS ORDERED: DiMENhydriNATE IV* 50 MG/ML VIAL IV PUSH PRN (16:21)
[2019-06-28] MEDS ORDERED: fentaNYL* 50 MCG/ML 2 ML VIAL (100 MCG VIAL) IV PRN (16:21)
[2019-06-28] MEDS ORDERED: PROCHLORPERAZINE INJ 5 MG/ML 2 ML VIAL IV PRN (16:21)
[2019-06-28] MEDS ORDERED: HYDROmorphone INJ1* 1 MG/ML SYRINGE ONE ×2 (16:43→17:42)
[2019-06-28] MEDS ORDERED: Albuterol HFA INHALER* 8 gm MDI INH PRN (16:51)
[2019-06-28] MEDS: HYDROmorphone INJ1* 1 MG/ML SYRINGE IV PRN ×5 (17:42→18:24)
[2019-06-28] MEDS ORDERED: NON FORMULARY MED* (Amlodipine Besylate [Norvasc] 10 MG) PO SCH (18:00)
[2019-06-28] MEDS ORDERED: oxyCODONE TAB* 5 MG TAB ONE (18:04)
[2019-06-28] MEDS: Lactated Ringers 1000 ML Bag* 1,000 ML IV SCH (19:25)
[2019-06-28] MEDS: CMCS: Anastrozole (NF) 1 MG TAB PO SCH (19:31)
[2019-06-28] MEDS ORDERED: amLODIPine TAB* 5 MG PO SCH ×2 (19:36→19:47)
--- NOTE | 2019-06-28 20:30 | CONS ---
CONSULTATION REPORT: DATE OF CONSULT: 06/28/19 REQUESTING PROVIDER: Dr. Sugar Gonzalez.* PRIMARY CARE PROVIDER: Dr. Chapman. REASON FOR CONSULT: Comanagement of chronic medical conditions. HISTORY OF PRESENT ILLNESS: Sunita Krishnan is a 74-year-old white female with past medical history significant for diabetes mellitus type 2, hypertension, hypothyroidism, GERD, lupus, CKD, asthma, MARTHA with use of CPAP at home, who presents for elective right total knee arthroplasty with Dr. Gonzalez today. The patient has failed outpatient medical conservative therapy and has elected to proceed with surgery today. The patient is evaluated at the bedside in the PACU. The patient is complaining of dull left knee pain, otherwise has no complaints. She denies abdominal pain, nausea, chest pain, difficulty breathing , fevers or chills. PAST MEDICAL HISTORY: 1. CKD. 2. Chronic back, knee, and hip pain, on chronic opiates. 3. Hypertension. 4. Hyperlipidemia. 5. Diabetes mellitus, type 2, diet controlled. 6. GERD. 7. Hypothyroidism. 8. Asthma. 9. Lupus. 10. Sarcoidosis. 11. History of breast cancer, status post right lumpectomy. 12. Gout. 13. Diverticulosis with history of multiple episodes of diverticulitis in the past. 14. MARTHA, on CPAP at home. 15. Stress urinary incontinence. PAST SURGICAL HISTORY: 1. Right lumpectomy. 2. Total hysterectomy. 3. Cholecystectomy. 4. Appendectomy. 5. Hernia repair. FAMILY HISTORY: Patient's parents are both . Her father was overall healthy person and she tells me he of old age. Mother had a history of diabetes. SOCIAL HISTORY: The patient has 7 children and one of her sons lives with her. She is . She denies tobacco use, illicit drug use, and alcohol use. She has never been a smoker, she tells me. REVIEW OF SYSTEMS: A 11-point review of systems was completed. All pertinent positive and negatives are above in the HPI. All other systems are negative. PHYSICAL EXAM: General: Morbidly obese, white female, lying in PACU bed, appearing comfortable, in no distress. Eyes: PERRL. Sclerae anicteric. ENT: Mucous membranes are moist. Lungs: Clear to auscultation throughout. Cardio: Regular rate and rhythm without murmurs, rubs, or gallops. Abdomen: Minimal tenderness to palpation in the left lower quadrant, otherwise abdomen is soft and nondistended. Extremities: No clubbing, cyanosis, or edema. Neuro: The patient is alert and oriented x3. Strength is equal and bilateral to dorsiflexion and plantarflexion of the feet. Sensation to light touch in the lower extremities is bilaterally grossly intact. ASSESSMENT AND PLAN: Sunita Krishnan is a 74-year-old white female with past medical history significant for diabetes, hypertension, hyperlipidemia, gastroesophageal reflux disease, hypothyroidism, asthma, chronic pain, who presents for elective left total knee arthroplasty with Dr. Gonzalez today. Hospital Medicine has been consulted for co-management of chronic medical conditions. 1. Hypertension. I will continue the patient's home amlodipine, spironolactone , and losartan. The patient's losartan will have holding parameters to hold for systolic blood pressure less than 110. She has been normotensive in the PACU. 2. Diabetes. The patient has diet-controlled diabetes at home and I will ensure she has a carbohydrate consistent diet in the hospital. I will do fingersticks just once a day and I do not anticipate need for insulin at this time but this can be continued to be monitored. 3. History of gout. Continue patient's home allopurinol. 4. History of lupus. Continue patient's home Plaquenil. 5. History of breast cancer. Continue patient's home anastrozole. 6. Chronic pain. The patient takes oral morphine and I will continue this and other pain control as per Orthopedic Surgery. Perhaps pain speciality consultation may be needed during this hospitalization but this will be continued to be monitored. 7. Hyperlipidemia. Continue patient's home statin. 8. Obstructive sleep apnea. Order the patient's hospital CPAP equipment. 9. Gastroesophageal reflux disease. I will continue the patient's home ranitidine, which will be famotidine while she is in the hospital. 10. Abdominal tenderness on exam. The patient has no complaints of abdominal pain, however, does have minimal tenderness on exam in the left lower quadrant. Given her history of previous diverticulitis and her standing history of diverticulosis, we will continue to monitor this and if there are continuing concerns for diverticulitis, the a CT of abdomen and pelvis will be ordered, however, I will hold off at this time and reassess tomorrow. 11. Asthma. Continue the patient's home p.r.n. albuterol inhaler. 12. Hypothyroidism. Continue the patient's home Synthroid. 13. DVT prophylaxis: Per Orthopedic Surgery, the patient is going to be started on apixaban. 14. Code status: The patient is full code. 15. Status post left total knee arthroplasty, management per orthopedic team. 16. Disposition: Per primary orthopedic team. Thank you for allowing us to participate in the care of this patient. We will follow during this hospitalization. NANCY LAW [id number]/[facility] #: [id number] JENNY
[2019-06-28] MEDS: Docusate CAP* 100 MG PO SCH (20:46)
[2019-06-28] MEDS: CMCS: Pravastatin (NF) 20 MG TAB PO SCH (20:46)
[2019-06-28] MEDS: Hydroxychloroquine TAB* 200 MG PO SCH (20:46)
[2019-06-28] MEDS: Magnesium Oxide TAB* 400 MG PO SCH (20:46)
[2019-06-28] MEDS: Morphine TAB Extended Release (*) 30 MG TAB.ER PO SCH (20:47)
[2019-06-28] MEDS: Magnesium Hydroxide LIQ* 30 ML UDC PO SCH (20:48)
--- NOTE | 2019-06-28 21:01 | OP ---
Operative Report - Blank - Operative Report Date of Operation: 06/28/19 Note: JODI KAM I 1945 Date of Surgery: 06/28/19 Sugar Gonzalez MD Dough Brake Machine Operator: Gunner CRUZ did help throughout the procedure with preparation of the knee, wound retraction, manipulation of the knee, and wound closure. Anesthesiologist: Dr. Dow Anesthesia Type: General Preoperative Diagnosis: Left severe degenerative osteoarthritis of the knee Postoperative Diagnosis: As above Procedure Performed: Left Total Knee Arthroplasty Tourniquet time: 45 minutes Complications: None Specimen: Bone and cartilage from the left knee joint sent to pathology. Hardware Used: Cemented Rosen and Nephew total knee hardware was used - For the femur a size 5 left narrow legion posterior stabilized femoral component, for the tibia a size 3 left roxanne II tibial baseplate, for the insert a size 9mm 3 -4 posterior stabilized articular polyethylene insert, and for the patella a size 32 3-peg all poly patella. Brief History/Indication: JODI KAM I was known in clinic and had a history of severe left knee pain and swelling. She failed conservative treatment with anti-inflammatories, pain pills, intra-articular injections and physical therapy. She elected to undergo left total knee arthroplasty due to continued pain and decreased quality of life. Radiographs showed severe end stage osteoarthritis of the knee with bone on bone contact. Informed consent was obtained from the patient. She understood the risks of surgery included but were not limited to: bleeding, infection, damage to nearby structures, intraoperative fracture, nerve palsy, failure of the hardware, early loosening, knee stiffness or loss of motion, anesthesia complications, stroke, heart attack , blood clot and . She wished to proceed. Intra-Operative Findings: Intraoperatively the patient was noted to have severe loss of cartilage in all 3 compartments of the knee. Description of the Procedure: JODI KAM I was identified in the preanesthesia unit. Her left knee was marked as the correct operative side. Informed consent was signed and placed in the chart. The patient was taken to the operating room and placed under anesthesia without complication. A quiroz catheter was placed. A tourniquet was placed on the left thigh. The left lower extremity was prepped and draped in the usual sterile fashion. Preoperative time-out was made to correctly identify the patient, side and site. Appropriate intraoperative antibiotics were given within one hour of incision. Tourniquet was inflated. A midline incision was made and carried sharply down to the extensor mechanism. A new 10 blade was used to make a standard medial parapatellar arthrotomy. The patella was subluxed laterally. Electrocautery was used to dissect soft tissue off the superomedial tibia to the midsagittal plane. The knee was flexed up. The anterior horn of the lateral meniscus and the ACL were sharply incised. A drill was used to enter the distal femur. The intramedullary distal femoral cutting guide was pinned on the distal femur. The oscillating saw was used to make the distal femoral cut. The external rotation guide was pinned on the distal femur and the distal femur was sized to a size 5. The size 5 multi-cutting jig was pinned on the distal femur. The oscillating saw was used to make the appropriate 4 chamfer cuts. Next the PCL was completely released. The extramedullary tibial cutting guide was pinned on the proximal tibia and the oscillating saw was used to make the proximal tibial cut perpendicular to the mechanical axis of the tibia. The bone was carefully removed. The knee was brought out into full extension. The spacer block was placed and had excellent fit with the knee in full extension. The medial and lateral ligaments were well balanced. The flexion and extension gaps were well balanced. The knee was flexed up. Lamina safety supervisor was placed both medially and laterally. Any remaining meniscus was removed with electrocautery. Curved osteotome was used to remove any posterior osteophytes. The tibial tray and drop ghazala were placed and confirmed a satisfactory tibial cut. The size 5 left narrow femoral trial was impacted onto the distal femur. This trial had excellent fit and stability. The box for the posterior stabilized implant was prepared using a box cut osteotome and a reamer. Next a tibial tray trial and 9 mm insert trial was placed. The knee was taken through a range of motion and had full extension to 130 degrees of flexion. Patellofemoral tracking was satisfactory. The patella was inverted and sized to a size 32. Three peg holes were drilled through the size 32 drill guide. The trial patella was placed and the knee was taken through a range of motion. There was satisfactory patellofemoral tracking. All trials were removed. The tibia was subluxed anteriorly and sized to a size 3. The proximal tibial was prepared with a size 3 keel punch. All bony cut surfaces were irrigated with sterile saline and dried. Final implants were cemented into place starting with the tibia, followed by the femur, and last the patella. A 9 mm insert trial was placed and the knee was brought into full extension. Tourniquet was turned down and the knee was copiously irrigated with sterile saline. Electrocautery was used to obtain meticulous hemostasis. Once the cement had fully cured, the insert trial was removed. Any excess cement was removed from around the hardware and capsule. Final insert chosen was a 9 mm posterior stabilized Roxanne II articular insert size 3-4. Stability of the insert was checked and noted to be stable. The extensor mechanism was closed using number 1 vicryls. The rest of the incision was closed in a layered fashion using 0 and 2-0 vicryls. The skin was closed using 3-0 nylon suture. Sterile xeroform, 4x4s and webril were used to cover the incision. Wenceslao wrap and cold pack were used to cover the dressings. The patients anesthesia was reversed without difficulty. She was taken to the PACU in stable condition. Intended weight-bearing will be as tolerated.
[2019-06-28] MEDS: oxyCODONE TAB* 5 MG TAB PO PRN (23:02)
[2019-06-28] MEDS: ceFAZolin 1 GM ADVAN(*) 1 GM in NS 0.9% 50 ML* 50 ML IVPB SCH (23:14)
[2019-06-29] MEDS: oxyCODONE TAB* 5 MG TAB PO PRN ×3 (04:08→17:50)
[2019-06-29] MEDS: Levothyroxine TAB* 150 MCG TAB PO SCH (06:17)
[2019-06-29 07:15] LABS: Hematocrit 38 % (35-47); Hemoglobin 13.1 g/dL (12.0-16.0); Platelet Count 188 10^3/uL (150-450)
[2019-06-29 07:17] LABS: Mean Platelet Volume 7.7 fL (7.4-10.4)
[2019-06-29] MEDS: ceFAZolin 1 GM ADVAN(*) 1 GM in NS 0.9% 50 ML* 50 ML IVPB SCH ×2 (07:50→15:11)
[2019-06-29] MEDS: Famotidine TAB* 20 MG PO SCH ×2 (09:54→20:41)
[2019-06-29] MEDS: Oxybutynin XL TAB* 5 MG PO SCH (09:54)
[2019-06-29] MEDS: Magnesium Oxide TAB* 400 MG PO SCH ×3 (09:54→20:41)
[2019-06-29] MEDS: Hydroxychloroquine TAB* 200 MG PO SCH ×2 (09:54→20:40)
[2019-06-29] MEDS: Allopurinol TAB* 300 MG PO SCH (09:55)
[2019-06-29] MEDS: Docusate CAP* 100 MG PO SCH ×2 (09:55→20:40)
[2019-06-29] MEDS: Losartan TAB* 25 MG PO SCH (09:55)
[2019-06-29] MEDS: Apixaban* 2.5 MG TAB PO SCH ×2 (09:55→20:41)
[2019-06-29] MEDS: Morphine TAB Extended Release (*) 30 MG TAB.ER PO SCH ×2 (09:55→20:41)
[2019-06-29] MEDS: aMILoride TAB* 5 MG PO SCH (09:56)
[2019-06-29] MEDS: Magnesium Hydroxide LIQ* 30 ML UDC PO SCH ×2 (09:58→20:42)
[2019-06-29] MEDS: Vitamin THERAPEUTIC TAB PO SCH (09:58)
[2019-06-29] MEDS: Lactated Ringers 1000 ML Bag* 1,000 ML IV SCH (11:45)
--- NOTE | 2019-06-29 14:35 | PN ---
Progress Note - Progress Note Date of Service: 06/29/19 SOAP: Subjective: [Pt was seen this morning sitting up in bed. She states that she is doing well. She denies any chest pain, SOB, nausea or vomiting. She states that she would like to go home tomorrow as she can obtain a ride at that time. ] Objective: [General: Pt is alert and oriented x3. NAD. MSK, LLE: Dressing is c/d/i. NVI. 2+ DP pulse. Calf is soft and non tender. + df /pf Vital Signs Temp 97.3 F 06/29/19 12:01 Pulse 68 06/29/19 12:01 Resp 18 06/29/19 14:24 BP 129/57 06/29/19 12:01 Pulse Ox 93 06/29/19 12:01 Intake & Output 06/28/19 06/29/19 06/29/19 18:59 06:59 18:59 Intake Total 098 449 8293 Output Total 450 150 Balance 127 43 6340 Weight 239 lb Intake: IV Fluids 100 1223 LR 1223 NS 100ML, Cefazolin 2G 100 IVPB 50 ABX - CEFAZOLIN 50 Oral 460 360 Output: Rodriguez 450 Emesis 150 Other: # Bowel Movements 0 ] Assessment: [S/P LTKA POD 1 ] Plan: [Continue with PT Continue with Eliquis 2.5mg bid Continue with percocet for pain relief. Discharge tomorrow. ]
[2019-06-29] MEDS ORDERED: Scopolamine 1.5 mg* PATCH TRANSDERM ONE (15:15)
[2019-06-29 16:42] LABS: BUN/Creatinine Ratio 15.4 (8-20); Calcium 9.4 mg/dL (8.6-10.3); EGFR African American 73.5 (>60); EGFR Non-African American 60.8 (>60); Potassium 4.5 mmol/L (3.5-5.0)
--- NOTE | 2019-06-29 17:17 | PN ---
Subjective Date of Service: 06/29/19 Interval History: Patient has had 3 episodes of vomiting today, most recently approx 1600. She has not experienced nausea today, but tells me the sensation of needing to vomit suddenly onsets. Denies abd pain, diarrhea, fever/chills, chest pain, SOB. Objective Active Medications: Acetaminophen (Tylenol Tab*) 650 mg PO Q8HR PRN PRN Reason: MILD PAIN or TEMP > 100.4 Albuterol (Ventolin Hfa Inhaler*) 2 puff INH Q4H PRN PRN Reason: SHORTNESS OF BREATH Allopurinol (Zyloprim Tab*) 300 mg PO QAM [facility] Last Admin: 06/29/19 09:55 Dose: 300 mg Amiloride HCl (Midamor Tab*) 5 mg PO QAM [facility] Last Admin: 06/29/19 09:56 Dose: 5 mg Amlodipine Besylate (Norvasc Tab*) 10 mg PO QPM [facility] Anastrozole (Arimidex (Nf)) 1 mg PO QPM [facility] Last Admin: 06/28/19 19:31 Dose: Not Given Apixaban (Eliquis*) 2.5 mg PO BID [facility] Last Admin: 06/29/19 09:55 Dose: 2.5 mg Bisacodyl (Dulcolax Supp*) 10 mg ME DAILY PRN PRN Reason: CONSTIPATION Cyclobenzaprine HCl (Flexeril Tab*) 10 mg PO Q6H PRN PRN Reason: SPASMS Diphenhydramine HCl (Benadryl Iv*) 25 mg IV Q6H PRN PRN Reason: PRURITIS Diphenhydramine HCl (Benadryl Po*) 25 mg PO Q6H PRN PRN Reason: PRURITIS Docusate Sodium (Colace Cap*) 100 mg PO BID [facility] Last Admin: 06/29/19 09:55 Dose: 100 mg Famotidine (Pepcid Tab*) 20 mg PO BID [facility]; Protocol Last Admin: 06/29/19 09:54 Dose: 20 mg Hydroxychloroquine Sulfate (Plaquenil Tab*) 200 mg PO BID [facility] Last Admin: 06/29/19 09:54 Dose: 200 mg Lactated Ringer's (Lactated Ringers 1000 Ml Bag*) 1,000 mls @ 100 mls/hr IV PER RATE [facility] Last Admin: 06/29/19 11:45 Dose: 100 mls/hr Lactulose (Lactulose*) 30 ml PO BID PRN PRN Reason: CONSTIPATION Levothyroxine Sodium (Synthroid Tab*) 150 mcg PO 0600 [facility] Last Admin: 06/29/19 06:17 Dose: 150 mcg Losartan Potassium (Cozaar Tab*) 100 mg PO QAM [facility] Last Admin: 06/29/19 09:55 Dose: 100 mg Magnesium Hydroxide (Milk Of Magnesia Liq*) 30 ml PO BID [facility] Last Admin: 06/29/19 09:58 Dose: Not Given Magnesium Hydroxide (Milk Of Magnesia Liq*) 30 ml PO Q6H PRN PRN Reason: CONSTIPATION Magnesium Oxide (Magox 400 Tab*) 400 mg PO TID [facility] Last Admin: 06/29/19 15:11 Dose: 400 mg Morphine Sulfate (Morphine Inj (Syringe))*) 2 mg IV Q4H PRN PRN Reason: Pain - Unrelieved Morphine Sulfate (Ms Contin(*)) 30 mg PO Q12HR [facility] Last Admin: 06/29/19 09:55 Dose: 30 mg Multivitamins (Theragran Tab*) 1 tab PO DAILY [facility] Last Admin: 06/29/19 09:58 Dose: Not Given Ondansetron HCl (Zofran Inj*) 4 mg IV Q6H PRN PRN Reason: NAUSEA Last Admin: 06/29/19 16:42 Dose: 4 mg Ondansetron HCl (Zofran Odt Tab*) 4 mg PO Q6H PRN PRN Reason: NAUSEA Last Admin: 06/29/19 08:56 Dose: 4 mg Oxybutynin Chloride ([facility]it[facility] Xl Tab*) [facility] [place] [facility] [place] Admin: 06/29/19 09:54 Dose: 10 mg Oxycodone HCl (Roxycodone Tab*) 10 mg PO Q4H PRN PRN Reason: Pain - Breakthrough Last Admin: 06/29/19 12:34 Dose: 10 mg Oxycodone/Acetaminophen (Percocet 5/325 Tab*) 1 tab PO Q4H PRN PRN Reason: PAIN - MODERATE Oxycodone/Acetaminophen (Percocet 5/325 Tab*) 2 tab PO Q4H PRN PRN Reason: PAIN - SEVERE Last Admin: 06/29/19 06:21 Dose: 2 tab Pharmacy Profile Note (Scopolamine Patch Remove*) 1 note PATCH OFF 1515 ONE Stop: 07/02/19 15:16 Pravastatin Sodium (Pravachol (Nf)) 10 mg PO BEDTIME [facility] Last Admin: 06/28/19 20:46 Dose: 10 mg Vital Signs - 8 hr 06/29/19 06/29/19 06/29/19 09:14 09:55 12:01 Temperature 97.3 F Pulse Rate 68 Respiratory 20 20 16 Rate Blood Pressure 129/57 (mmHg) O2 Sat by Pulse 93 Oximetry 06/29/19 06/29/19 06/29/19 12:34 14:24 15:15 Temperature Pulse Rate Respiratory 18 18 20 Rate Blood Pressure (mmHg) O2 Sat by Pulse Oximetry 06/29/19 16:46 Temperature 97.3 F Pulse Rate 69 Respiratory 18 Rate Blood Pressure 114/48 (mmHg) O2 Sat by Pulse 100 Oximetry Oxygen Devices in Use Now: None Appearance: Morbidly obese, elderly white female, laying upright in bed, appearing comfortable and in NAD Eyes: No Scleral Icterus, - - PERRL Ears/Nose/Mouth/Throat: Mucous Membranes Moist Neck: Trachea Midline Respiratory: Symmetrical Chest Expansion and Respiratory Effort, Clear to Auscultation Cardiovascular: NL Sounds; No Murmurs; No JVD, RRR Abdominal: NL Sounds; No Tenderness; No Distention Extremities: - - trace nonpitting edema to LLE consistent with postoperative changes Skin: No Rash or Ulcers Neurological: Alert and Oriented x 3 Result Diagrams: 06/29/19 06:51 06/29/19 16:10 Assess/Plan/Problems-Billing Assessment: 74 yo white female with PMHx MARTHA on CPAP, diet controlled DMT2, HTN, HLD, chronic opiate use for chronic pain, CKD, GERD, lupus, hypothyroidism presents for elective L TKA with Dr. Gonzalez. Hospitalists are consulted for co-mgmt. - Patient Problems (1) Vomiting Current Visit: Yes Status: Acute Code(s): R11.10 - VOMITING, UNSPECIFIED SNOMED Code(s): 070927951 Comment: -patient had LLQ tenderness to palpation on exam yesterday, which has resolved today -vomting today with no symptomatic abd pain -possibly related to pain medication, advise taking all po opiates with snack in the acute setting -does have hx of diverticulosis w multiple prior episodes of diverticulitis, and should follow up with PCP regarding this if does not improve -will recheck BMP tomorrow (2) Diabetes mellitus type 2 in obese Current Visit: Yes Status: Acute Code(s): E11.69 - TYPE 2 DIABETES MELLITUS WITH OTHER SPECIFIED COMPLICATION; E66.9 - OBESITY, UNSPECIFIED SNOMED Code(s) : 01044548 Comment: -diet controlled at home -cont consistent carb diet (3) Lupus Current Visit: Yes Status: Acute Code(s): M32.9 - SYSTEMIC LUPUS ERYTHEMATOSUS, UNSPECIFIED SNOMED Code(s): 451819237 Comment: -continue plaquenil (4) Sleep apnea Current Visit: No Status: Active Code(s): G47.30 - SLEEP APNEA, UNSPECIFIED SNOMED Code(s): 64908422 Comment: -continue CPAP (5) HLD (hyperlipidemia) Current Visit: No Status: Chronic Code(s): E78.5 - HYPERLIPIDEMIA, UNSPECIFIED SNOMED Code(s): 82079276 Comment: -cont statin (6) HTN (hypertension) Current Visit: No Status: Chronic Code(s): I10 - ESSENTIAL (PRIMARY) HYPERTENSION SNOMED Code(s): 49737049 Comment: -normotensive -continue losartan, amiloride, amlodipine (7) Hypothyroidism Current Visit: No Status: Chronic Code(s): E03.9 - HYPOTHYROIDISM, UNSPECIFIED SNOMED Code(s): 18575366 Comment: -cont synthroid (8) DVT prophylaxis Current Visit: Yes Status: Acute Code(s): Z29.9 - ENCOUNTER FOR PROPHYLACTIC MEASURES, UNSPECIFIED SNOMED Code(s): 871713699 Comment: -raul cuevas ortho (9) Full code status Current Visit: Yes Status: Acute Code(s): Z78.9 - OTHER SPECIFIED HEALTH STATUS SNOMED Code(s): 385315104 Status and Disposition: per ortho
[2019-06-29] MEDS: CMCS: Anastrozole (NF) 1 MG TAB PO SCH (17:50)
[2019-06-29] MEDS: CMCS: Pravastatin (NF) 20 MG TAB PO SCH (21:48)
[2019-06-30] MEDS: Levothyroxine TAB* 150 MCG TAB PO SCH (06:03)
[2019-06-30 06:33] LABS: Hematocrit 30 % (35-47); Hemoglobin 10.6 g/dL (12.0-16.0); Mean Platelet Volume 7.3 fL (7.4-10.4); Platelet Count 194 10^3/uL (150-450)
[2019-06-30 07:23] LABS: Calcium 8.8 mg/dL (8.6-10.3); Potassium 4.7 mmol/L (3.5-5.0)
[2019-06-30 07:29] LABS: BUN/Creatinine Ratio 15.6 (8-20); EGFR African American 74.5 (>60); EGFR Non-African American 61.5 (>60)
[2019-06-30] MEDS: aMILoride TAB* 5 MG PO SCH (08:12)
[2019-06-30] MEDS: Docusate CAP* 100 MG PO SCH (08:12)
[2019-06-30] MEDS: Magnesium Oxide TAB* 400 MG PO SCH (08:12)
[2019-06-30] MEDS: Hydroxychloroquine TAB* 200 MG PO SCH (08:12)
[2019-06-30] MEDS: Famotidine TAB* 20 MG PO SCH (08:12)
[2019-06-30] MEDS: Vitamin THERAPEUTIC TAB PO SCH (08:12)
[2019-06-30] MEDS: Apixaban* 2.5 MG TAB PO SCH (08:13)
[2019-06-30] MEDS: Losartan TAB* 25 MG PO SCH (08:13)
[2019-06-30] MEDS: Oxybutynin XL TAB* 5 MG PO SCH (08:13)
[2019-06-30] MEDS: Allopurinol TAB* 300 MG PO SCH (08:13)
[2019-06-30] MEDS: Morphine TAB Extended Release (*) 30 MG TAB.ER PO SCH (08:13)
[2019-06-30] MEDS: Magnesium Hydroxide LIQ* 30 ML UDC PO SCH (08:16)
--- NOTE | 2019-06-30 08:30 | PN ---
Progress Note - Progress Note Date of Service: 06/30/19 SOAP: Subjective: resting comfortably in bed, pain well controlled, no complaints Objective: Laboratory Last Values Hgb 10.6 g/dL (12.0-16.0) L 06/30/19 06:16 Hct 30 % (35-47) L 06/30/19 06:16 Plt Count 194 10^3/uL (150-450) 06/30/19 06:16 MPV 7.3 fL (7.4-10.4) L 06/30/19 06:16 Sodium 138 mmol/L (135-145) 06/30/19 06:16 Potassium 4.7 mmol/L (3.5-5.0) 06/30/19 06:16 Chloride 103 mmol/L (101-111) 06/30/19 06:16 Carbon Dioxide 27 mmol/L (22-32) 06/30/19 06:16 Anion Gap 8 mmol/L (2-11) 06/30/19 06:16 BUN 14 mg/dL (6-24) 06/30/19 06:16 Creatinine 0.90 mg/dL (0.51-0.95) 06/30/19 06:16 Est GFR ( Amer) 74.5 (>60) 06/30/19 06:16 Est GFR (Non-Af Amer) 61.5 (>60) 06/30/19 06:16 BUN/Creatinine Ratio 15.6 (8-20) 06/30/19 06:16 Glucose 111 mg/dL (70-100) H 06/30/19 06:16 POC Glucose (mg/dL) 134 mg/dL (70-100) H 06/28/19 18:22 Calcium 8.8 mg/dL (8.6-10.3) 06/30/19 06:16 Vital Signs Temp Pulse Resp BP Pulse Ox 97.7 F 69 18 120/48 94 06/30/19 07:50 06/30/19 07:50 06/30/19 08:13 06/30/19 07:50 06/30/19 07:50 incision: c/d; dressing changed PE: NVI Assessment: s/p left TKA;pod#2 Plan: 1) PT/OT- WBAT 2) Eliquis BID for DVT prophylaxis 3) Home today after PT; F/U with Dr. Gonzalez in 2 weeks
[2019-06-30 11:26] VITALS: BP 122/39
[2019-06-30] MEDS: oxyCODONE TAB* 5 MG TAB PO PRN (11:37)
--- NOTE | 2019-06-30 21:43 | DS ---
AMENDED REPORT NOW INCLUDES DESIGNATED COSIGNER - ESIGNED BEFORE ADJUSTMENTS DISCHARGE SUMMARY: DATE OF ADMISSION: 06/28/19 DATE OF DISCHARGE: 06/30/19 SURGEON: Sugar Gonzalez MD * (DICTATED BY NANCY CONDE) PRINCIPAL DIAGNOSIS: Severe end-stage osteoarthritis, left knee. DISCHARGE DIAGNOSIS: Severe end-stage osteoarthritis, left knee. DISCHARGE DISPOSITION: Discharged home in stable condition. HISTORY OF PRESENT ILLNESS: Ms. Krishnan is a 74-year-old female with severe end- stage osteoarthritis of the left knee. She has failed conservative treatment and elected to proceed with a left total knee arthroplasty. HOSPITAL COURSE: Ms. Krishnan was admitted electively to the hospital on 06/28/19 and underwent a left total knee arthroplasty. She tolerated the procedure well without complications. Postoperatively, she was placed on Eliquis twice a day for DVT prophylaxis. On postoperative day 1, her H and H was 13 and 38; on postop day 2, 10 and 30. At the time of discharge on 06/30/19, she was afebrile , her vital signs were stable, and she was ambulating well with a walker. PHYSICAL EXAM UPON DISCHARGE: The wound was clean, dry, and healing well. There were no signs of infection. She was able to dorsiflex and plantarflex. She has 2+ dorsalis pedis pulse, and intact sensation. Her calves were soft and nontender. DISCHARGE MEDICATIONS: 1. Oxycodone 5 mg every 6 hours as needed for breakthrough pain. 2. Flexeril 10 mg tablet 1 every 8 hours as needed for spasms. 4. Colace 100 mg tabs every 8 hours as needed for constipation. 5. Amiloride 5 mg daily. 6. Norvasc 10 mg a day. 7. Arimidex 1 mg daily. 8. Pepcid 20 mg twice a day. 9. Plaquenil 200 mg twice a day. 10. Levothyroxine 150 mcg a day. 11. Cozaar 100 mg daily. 12. Extended release morphine 30 mg twice a day. 13. Percocet 5/325 one tab every 4 hours as needed. 14. Oxybutynin 10 mg a day. 15. Pravachol 2 mg q.h.s. DISCHARGE INSTRUCTIONS: She was discharged home. She gets 30 mg extended release morphine as well as Percocet from Dr. Parr. She is going to continue these home medications. We have sent oxycodone 5 mg every 6 hours as needed for breakthrough pain as well as Flexeril every 8 hours for muscle spasms. She will take Eliquis 2.5 mg twice a day for DVT prophylaxis. She is weightbearing as tolerated. She can shower on Tuesday letting soap and water run over the incision. Pat the area dry. Do not submerge in water. She will see Dr. Gonzalez back in clinic in 2 weeks. She is asked to call our office with any questions or concerns. NANCY CONDE [id number]/[facility] #: [id number] JENNY
[2019-07-02] MEDS ORDERED: Scopolamine PATCH Remove* 1 NOTE MISC PATCH OFF ONE (15:15)
== END 2019-06-30 13:00 | disposition home health service (06) | DRG 470 ==
LOC: AA 12:22 → SSU 15:53
PROVIDERS: ADMIT Orthopaedic Surgery Adult Reconstructive Orthopaedic Surgery; ATTEND Orthopaedic Surgery Adult Reconstructive Orthopaedic Surgery
PROC: 0SRD0J9 Replacement of Left Knee Joint with Synthetic Substitute, Cemented, Open Approach (ICD-10-PCS; principal; 2019-06-28 16:00)
DX: M17.12 Unilateral primary osteoarthritis, left knee (principal); Z68.41 Body mass index [BMI] 40.0-44.9, adult; I12.9 Hypertensive chronic kidney disease with stage 1 through stage 4 chronic kidney disease, or unspecified chronic kidney disease; N18.3 Chronic kidney disease, stage 3 (moderate); G89.29 Other chronic pain; E78.00 Pure hypercholesterolemia, unspecified; E11.22 Type 2 diabetes mellitus with diabetic chronic kidney disease; K21.9 Gastro-esophageal reflux disease without esophagitis; E03.9 Hypothyroidism, unspecified; J45.909 Unspecified asthma, uncomplicated; M32.9 Systemic lupus erythematosus, unspecified; D86.9 Sarcoidosis, unspecified; E78.5 Hyperlipidemia, unspecified; M10.9 Gout, unspecified; M25.462 Effusion, left knee; G47.33 Obstructive sleep apnea (adult) (pediatric); M54.9 Dorsalgia, unspecified; M25.559 Pain in unspecified hip; K57.30 Diverticulosis of large intestine without perforation or abscess without bleeding; E66.01 Morbid (severe) obesity due to excess calories; M25.762 Osteophyte, left knee; Z77.22 Contact with and (suspected) exposure to environmental tobacco smoke (acute) (chronic); N39.3 Stress incontinence (female) (male); R11.10 Vomiting, unspecified; Z85.3 Personal history of malignant neoplasm of breast; Z88.1 Allergy status to other antibiotic agents; Z99.89 Dependence on other enabling machines and devices; Z79.890 Hormone replacement therapy; Z79.899 Other long term (current) drug therapy
CPT/HCPCS: 36415; 80048; 85014; 85018; 85049; 88305; 88311; 94660; A9270-GY; C1776; J0330; J0690; J1100; J1170; J1240; J1885; J2250; J2405; J2704; J2795; J3010

== ENCOUNTER 2020-03-11 10:37 | Inpatient (IN) ==
[~2020-03-11 10:37] MED LIST changes: +Buffered Lidocaine 1% SYRIN 1 ml INTRADERM ONE; +DiMENhydriNATE IV 50 mg/ml 1 ml VIAL IV PUSH ONE; +Famotidine IV 10 MG/ML 2 ml VIAL (20 mg) IV ONE; -Famotidine IV* 10 MG/ML 2 ML (20 mg) IV ONE; -Lactated Ringers 1000 ML Bag* 1,000 ML IV SCH; +Lactated Ringers 1000 ml BAG 1,000 ML IV SCH
[2020-03-11] MEDS ORDERED: ceFAZolin 2 GM PREMIX 2 GM/50 ML BAG ONE (11:04)
[2020-03-11] MEDS ORDERED: DiMENhydriNATE IV 50 mg/ml 1 ml VIAL ONE (11:04)
[2020-03-11] MEDS ORDERED: Buffered Lidocaine 1% SYRIN 1 ml INTRADERM ONE (11:05)
[2020-03-11] MEDS ORDERED: Famotidine IV 10 MG/ML 2 ml VIAL (20 mg) ONE (11:05)
[2020-03-11] MEDS ORDERED: ROPIVACAINE 5 MG/ML 30 ML BTL (0.5%) ONE ×2 (12:03→13:12)
[2020-03-11] MEDS ORDERED: Midazolam 2 mg/2 ml VIAL 1 mg/ml 2 ml VIAL (2 mg) ONE (12:40)
[2020-03-11] MEDS ORDERED: fentaNYL 100 mcg/2 ml 50 MCG/ML VIAL ONE ×3 (12:40→16:08)
[2020-03-11] MEDS ORDERED: Lidocaine 2% PF 5 ML VIAL ONE (13:09)
[2020-03-11] MEDS ORDERED: Propofol 10 MG/ML 20 ML BTL ONE (13:09)
[2020-03-11] MEDS ORDERED: Rocuronium 50 mg VIAL 10 mg/ml 5 ml VIAL (50 mg) ONE (13:09)
[2020-03-11] MEDS ORDERED: Sugammadex 500 MG/5 ML 5 ml VIAL IV PUSH ONE (14:28)
[2020-03-11] MEDS ORDERED: Ondansetron 4 mg VIAL 2 MG/ML 2 ml VIAL ONE (14:28)
[2020-03-11] MEDS ORDERED: Acetaminophen IV 1 GM/100ML 100 ML ONE (14:29)
[2020-03-11] MEDS ORDERED: Prochlorperazine 5 mg/ml 2 ml VIAL (10 mg) IV PRN (14:52)
[2020-03-11] MEDS ORDERED: Morphine 4 MG/ML VIAL (1 ml) IV PRN (14:52)
[2020-03-11] MEDS ORDERED: Naloxone 0.4 mg VIAL 0.4 mg/ml 1 ml VIAL IV PRN (14:52)
[2020-03-11] MEDS ORDERED: diPHENhydraMINE IV 50 MG/ML 1 ml VIAL (BENADRYL) IV PRN (16:01)
[2020-03-11] MEDS ORDERED: diPHENhydraMINE 25 mg TAB PO PRN (16:01)
[2020-03-11] MEDS ORDERED: Lactulose 30 ml UDC PO PRN (16:01)
[2020-03-11] MEDS ORDERED: Morphine 2 MG/ML SYRINGE IV PRN (16:01)
[2020-03-11] MEDS ORDERED: Magnesium Hydroxide LIQ 30 ML UDC PO PRN (16:01)
[2020-03-11] MEDS: fentaNYL 100 mcg/2 ml 50 MCG/ML VIAL IV PRN ×2 (16:09→16:20)
[2020-03-11] MEDS: Lactated Ringers 1000 ml BAG 1,000 ML IV SCH (17:53)
[2020-03-11] MEDS ORDERED: Anastrozole 1 mg TAB (NF) PO SCH (18:00)
[2020-03-11] MEDS ORDERED: CMC: Pravastatin 20 mg TAB (NF) PO SCH (18:00)
[2020-03-11] MEDS: Magnesium Hydroxide LIQ 30 ML UDC PO SCH (20:28)
[2020-03-11] MEDS: Morphine ER 30 mg TAB ** extended release PO SCH (20:38)
[2020-03-11] MEDS: Prochlorperazine 5 mg/ml 2 ml VIAL (10 mg) IV PRN (21:41)
[2020-03-12] MEDS: Lactated Ringers 1000 ml BAG 1,000 ML IV SCH (03:28)
[2020-03-12 06:55] LABS: Hematocrit 31 % (35-47); Hemoglobin 10.8 g/dL (12.0-16.0); Mean Platelet Volume 7.2 fL (7.4-10.4); Platelet Count 182 10^3/uL (150-450)
[2020-03-12 07:16] LABS: BUN/Creatinine Ratio 17.2 (8-20); Calcium 8.6 mg/dL (8.6-10.3); EGFR African American 71.7 (>60); EGFR Non-African American 59.3 (>60); Potassium 4.3 mmol/L (3.5-5.0)
[2020-03-12] MEDS: Morphine ER 30 mg TAB ** extended release PO SCH (08:21)
[2020-03-12] MEDS: Magnesium Hydroxide LIQ 30 ML UDC PO SCH (08:24)
[2020-03-12] MEDS ORDERED: Vitamin THERAPEUTIC TAB PO SCH (09:00)
[2020-03-12] MEDS: ceFAZolin 1 GM ADVAN 1 GM in NS 0.9% 50 ML 50 ML IVPB SCH ×2 (09:20→17:23)
[2020-03-12] MEDS: Prochlorperazine 5 mg/ml 2 ml VIAL (10 mg) IV PRN (12:39)
[2020-03-12 16:22] VITALS: BP 134/60
[2020-03-12] MEDS ORDERED: ceFAZolin 1 GM ADVAN 1 GM in NS 0.9% 50 ML 50 ML IVPB SCH (23:00)
== END 2020-03-12 18:11 | disposition home health service (06) | DRG 470 ==
LOC: AA 10:37 → SSU 16:01
PROVIDERS: ADMIT Orthopaedic Surgery Adult Reconstructive Orthopaedic Surgery; ATTEND Orthopaedic Surgery Adult Reconstructive Orthopaedic Surgery

== ENCOUNTER 2020-03-14 08:09 | Inpatient (IN) ==
[2020-03-14] MEDS ORDERED: Morphine 4 MG/ML VIAL (1 ml) IV ONE (08:31)
[2020-03-14 09:15] LABS: ABS Eosinophils 0.1 10^3/ul (0-0.6); ABS Lymphocytes 1.4 10^3/ul (1.0-4.8); ABS Monocytes 1.1 10^3/ul (0-0.8); Eosinophil % 1.1 %; Hematocrit 28 % (35-47); Hemoglobin 9.5 g/dL (12.0-16.0); Lymphocyte % 11.7 %; Mean Corpuscular HGB Conc 34 g/dL (31-36); Mean Corpuscular Hemoglobin 32 pg (27-31); Mean Corpuscular Volume 92 fL (80-97); Mean Platelet Volume 7.4 fL (7.4-10.4); Nucleated Red Blood Cells % 0.1; Platelet Count 189 10^3/uL (150-450); Red Cell Distribution Width 14 % (10-15); White Blood Count 11.6 10^3/uL (3.5-10.8)
[2020-03-14 09:26] LABS: Albumin 3.3 g/dL (3.2-5.2); Albumin/Globulin Ratio 1.4 (1-3); BUN/Creatinine Ratio 18.6 (8-20); Calcium 8.8 mg/dL (8.6-10.3); EGFR African American 54.3 (>60); EGFR Non-African American 44.9 (>60); Globulin 2.3 g/dL (2-4); Potassium 4.3 mmol/L (3.5-5.0); Total Bilirubin 2.2 mg/dL (0.2-1.0); Total Protein 5.6 g/dL (6.4-8.9)
[2020-03-14] MEDS ORDERED: Ondansetron 4 mg VIAL 2 MG/ML 2 ml VIAL IV PRN (11:22)
[2020-03-14] MEDS ORDERED: Albuterol HFA INHALER 8 gm MDI INH PRN (11:44)
[2020-03-14 12:06] LABS: INR 1.3 (0.82-1.09)
[2020-03-14] MEDS ORDERED: Iodixanol (CONTRAST) 320 MG/ML 100 ML SDV IV ONE (12:26)
[2020-03-14] MEDS ORDERED: Perflutren Lipid Microsphere 3 ML VIAL ONE (14:26)
[2020-03-14] MEDS: Morphine 2 MG/ML SYRINGE IV PRN (14:40)
[2020-03-14] MEDS: NS 0.9% 1000 ml BAG 1,000 ML IV SCH (14:54)
[2020-03-14] MEDS ORDERED: Prochlorperazine 5 mg/ml 2 ml VIAL (10 mg) IV PRN (14:57)
[2020-03-14] MEDS ORDERED: CMCS:Pravastatin 20 mg TAB (NF) PO SCH (18:00)
[2020-03-14] MEDS ORDERED: Polyethylene Glycol 3350 17 GM PACKET PO PRN (18:26)
[2020-03-14] MEDS: oxyCODONE/Acetamin 5/325 mg TAB PO PRN ×2 (18:34→23:54)
[2020-03-14] MEDS: Morphine ER 30 mg TAB ** extended release PO SCH (19:45)
[2020-03-14] MEDS: CMCS:Pravastatin 20 mg TAB (NF) PO SCH (19:46)
[2020-03-14] MEDS: Calcium/Vitamin D TAB 250/125 TAB PO SCH (19:46)
[2020-03-14] MEDS: CMCS:Anastrozole 1 mg TAB (NF) PO SCH (19:47)
[2020-03-14] MEDS: Heparin 5000 UNITS/ML 1 mL VIAL SUBCUT SCH (21:55)
[2020-03-15] MEDS: NS 0.9% 1000 ml BAG 1,000 ML IV SCH ×3 (01:08→22:10)
[2020-03-15 05:04] LABS: ABS Eosinophils 0.2 10^3/ul (0-0.6); ABS Lymphocytes 1.8 10^3/ul (1.0-4.8); Eosinophil % 2.6 %; Hematocrit 27 % (35-47); Hemoglobin 9.4 g/dL (12.0-16.0); Lymphocyte % 19.5 %; Mean Corpuscular HGB Conc 35 g/dL (31-36); Mean Corpuscular Hemoglobin 32 pg (27-31); Mean Corpuscular Volume 92 fL (80-97); Mean Platelet Volume 7.1 fL (7.4-10.4); Nucleated Red Blood Cells % 0.1; Platelet Count 200 10^3/uL (150-450); Red Blood Count 2.94 10^6 /uL (3.70-4.87); Red Cell Distribution Width 14 % (10-15); White Blood Count 9.1 10^3/uL (3.5-10.8)
[2020-03-15 05:18] LABS: Albumin 3.1 g/dL (3.2-5.2); Albumin/Globulin Ratio 1.4 (1-3); BUN/Creatinine Ratio 20.5 (8-20); Calcium 8.2 mg/dL (8.6-10.3); EGFR African American 81.5 (>60); EGFR Non-African American 67.4 (>60); Globulin 2.2 g/dL (2-4); Potassium 4.2 mmol/L (3.5-5.0); Total Bilirubin 1.6 mg/dL (0.2-1.0); Total Protein 5.3 g/dL (6.4-8.9)
[2020-03-15] MEDS: Morphine 2 MG/ML SYRINGE IV PRN (05:51)
[2020-03-15] MEDS: Heparin 5000 UNITS/ML 1 mL VIAL SUBCUT SCH ×4 (05:57→22:10)
[2020-03-15] MEDS: oxyCODONE/Acetamin 5/325 mg TAB PO PRN (07:33)
[2020-03-15] MEDS: Morphine ER 30 mg TAB ** extended release PO SCH ×2 (09:49→22:07)
[2020-03-15] MEDS: CMCS:Pravastatin 20 mg TAB (NF) PO SCH (22:04)
[2020-03-15] MEDS: Calcium/Vitamin D TAB 250/125 TAB PO SCH (22:08)
[2020-03-15] MEDS: CMCS:Anastrozole 1 mg TAB (NF) PO SCH (22:09)
[2020-03-16] MEDS: Heparin 5000 UNITS/ML 1 mL VIAL SUBCUT SCH ×2 (05:20→12:37)
[2020-03-16] MEDS ORDERED: Buffered Lidocaine 1% SYRIN 1 ml INTRADERM ONE (06:00)
[2020-03-16] MEDS ORDERED: Lactated Ringers 1000 ml BAG 1,000 ML IV SCH (06:00)
[2020-03-16] MEDS ORDERED: Ondansetron 4 mg VIAL 2 MG/ML 2 ml VIAL ONE (07:32)
[2020-03-16] MEDS ORDERED: fentaNYL 100 mcg/2 ml 50 MCG/ML VIAL ONE (07:32)
[2020-03-16] MEDS ORDERED: Propofol 10 MG/ML 20 ML BTL ONE (07:32)
[2020-03-16] MEDS ORDERED: Lidocaine 2% PF 5 ML VIAL ONE (07:32)
[2020-03-16] MEDS ORDERED: Dexamethasone IV 4 MG/ML VIAL 1 ml VIAL ONE (07:32)
[2020-03-16] MEDS ORDERED: Ketamine HCL 50 mg/ml 10 ml VIAL (500 MG) ONE (07:33)
[2020-03-16] MEDS ORDERED: Rocuronium 50 mg VIAL 10 mg/ml 5 ml VIAL (50 mg) ONE (07:33)
[2020-03-16] MEDS ORDERED: Midazolam 5 mg/5 ml VIAL 1 mg/ml 5 ml VIAL (5 mg) ONE (07:33)
[2020-03-16] MEDS ORDERED: ceFAZolin 2 GM PREMIX 2 GM/50 ML BAG ONE (07:58)
[2020-03-16] MEDS ORDERED: Famotidine IV 10 MG/ML 2 ml VIAL (20 mg) ONE (08:15)
[2020-03-16] MEDS ORDERED: Phenylephrine 40 mcg/mL 10mL (400mcg) SYRINGE ONE (08:24)
[2020-03-16] MEDS ORDERED: Bacitracin OINTMENT TUBE ONE (09:03)
[2020-03-16] MEDS ORDERED: Lidocaine 1% w EPI 1:100,000 MDV 20 ML VIAL ONE (09:03)
[2020-03-16] MEDS ORDERED: EPHEDrine (Pressors) 50 MG/ML VIAL ONE (09:05)
[2020-03-16] MEDS ORDERED: Bacitracin INJECTION 50,000 UNITS ONE (09:05)
[2020-03-16] MEDS ORDERED: Sugammadex 500 MG/5 ML 5 ml VIAL IV PUSH ONE (09:53)
[2020-03-16] MEDS ORDERED: Levalbuterol 0.63MG/3ML NEB UNIT OF USE INH PRN (10:08)
[2020-03-16] MEDS ORDERED: Naloxone 0.4 mg VIAL 0.4 mg/ml 1 ml VIAL IV PRN (10:08)
[2020-03-16] MEDS ORDERED: HYDROmorphone 1 MG/1 ML SYRINGE IV PRN (10:08)
[2020-03-16] MEDS ORDERED: fentaNYL 100 mcg/2 ml 50 MCG/ML VIAL IV PRN (10:08)
[2020-03-16 11:00] LABS: Hematocrit 26 % (35-47); Hemoglobin 8.9 g/dL (12.0-16.0); Mean Corpuscular HGB Conc 34 g/dL (31-36); Mean Corpuscular Hemoglobin 31 pg (27-31); Mean Corpuscular Volume 92 fL (80-97); Platelet Count 217 10^3/uL (150-450); Red Blood Count 2.86 10^6 /uL (3.70-4.87); Red Cell Distribution Width 14 % (10-15); White Blood Count 14.2 10^3/uL (3.5-10.8)
[2020-03-16 11:10] LABS: Activated Partial Thrombo Time 23.8 seconds (26.0-38.0); INR 1.18 (0.82-1.09)
[2020-03-16 11:14] LABS: BUN/Creatinine Ratio 14.3 (8-20); Calcium 8.1 mg/dL (8.6-10.3); EGFR African American 80.4 (>60); EGFR Non-African American 66.5 (>60); Potassium 4.3 mmol/L (3.5-5.0)
[2020-03-16 12:07] LABS: ABS Eosinophils 0.3 10^3/ul (0-0.6); ABS Lymphocytes 2.1 10^3/ul (1.0-4.8); ABS Monocytes 1.6 10^3/ul (0-0.8); ABS Neutrophils 10.1 10^3/ul (1.5-7.7); Eosinophil % 2.2 %; Lymphocyte % 14.8 %
[2020-03-16] MEDS: Lactated Ringers 1000 ml BAG 1,000 ML IV SCH ×2 (12:31→20:50)
[2020-03-16] MEDS: Morphine ER 30 mg TAB ** extended release PO SCH ×2 (12:43→20:42)
[2020-03-16] MEDS: ceFAZolin 1 GM X 3 DOSES POST-OP Q8H (AddVan) IVPB SCH (16:56)
[2020-03-16] MEDS: Calcium/Vitamin D TAB 250/125 TAB PO SCH (20:41)
[2020-03-16] MEDS: CMCS:Pravastatin 20 mg TAB (NF) PO SCH (20:41)
[2020-03-16] MEDS: CMCS:Anastrozole 1 mg TAB (NF) PO SCH (20:43)
[2020-03-17] MEDS: ceFAZolin 1 GM X 3 DOSES POST-OP Q8H (AddVan) IVPB SCH ×2 (00:09→09:01)
[2020-03-17] MEDS: Lactated Ringers 1000 ml BAG 1,000 ML IV SCH ×2 (05:03→15:09)
[2020-03-17 08:46] LABS: ABS Basophils 0.1 10^3/ul (0-0.2); ABS Eosinophils 0.4 10^3/ul (0-0.6); ABS Lymphocytes 1.7 10^3/ul (1.0-4.8); ABS Monocytes 1.3 10^3/ul (0-0.8); ABS Neutrophils 6.2 10^3/ul (1.5-7.7); Eosinophil % 3.9 %; Hematocrit 26 % (35-47); Hemoglobin 8.8 g/dL (12.0-16.0); Lymphocyte % 17.7 %; Mean Corpuscular HGB Conc 35 g/dL (31-36); Mean Corpuscular Hemoglobin 32 pg (27-31); Mean Corpuscular Volume 92 fL (80-97); Mean Platelet Volume 7.1 fL (7.4-10.4); Platelet Count 217 10^3/uL (150-450); Red Blood Count 2.77 10^6 /uL (3.70-4.87); Red Cell Distribution Width 14 % (10-15); White Blood Count 9.8 10^3/uL (3.5-10.8)
[2020-03-17 08:59] LABS: Albumin/Globulin Ratio 1.4 (1-3); BUN/Creatinine Ratio 12.7 (8-20); Calcium 8.1 mg/dL (8.6-10.3); EGFR African American 86.3 (>60); EGFR Non-African American 71.3 (>60); Globulin 2.2 g/dL (2-4); Potassium 4.4 mmol/L (3.5-5.0); Total Bilirubin 1.2 mg/dL (0.2-1.0); Total Protein 5.2 g/dL (6.4-8.9)
[2020-03-17] MEDS: Morphine ER 30 mg TAB ** extended release PO SCH ×2 (08:59→21:45)
[2020-03-17] MEDS: oxyCODONE/Acetamin 5/325 mg TAB PO PRN (14:47)
[2020-03-17] MEDS: CMCS:Pravastatin 20 mg TAB (NF) PO SCH (21:41)
[2020-03-17] MEDS: CMCS:Anastrozole 1 mg TAB (NF) PO SCH (21:41)
[2020-03-17] MEDS: Calcium/Vitamin D TAB 250/125 TAB PO SCH (21:43)
[2020-03-18] MEDS: Senna TAB 8.6 mg TAB PO PRN ×2 (05:27→21:02)
[2020-03-18] MEDS ORDERED: Magnesium Hydroxide LIQ 30 ML UDC ONE (09:01)
[2020-03-18] MEDS: Morphine ER 30 mg TAB ** extended release PO SCH ×2 (09:05→21:03)
[2020-03-18 09:26] LABS: Hematocrit 24 % (35-47); Hemoglobin 8.6 g/dL (12.0-16.0); Mean Corpuscular HGB Conc 35 g/dL (31-36); Mean Corpuscular Hemoglobin 32 pg (27-31); Mean Corpuscular Volume 92 fL (80-97); Mean Platelet Volume 6.8 fL (7.4-10.4); Platelet Count 226 10^3/uL (150-450); Red Blood Count 2.65 10^6 /uL (3.70-4.87); Red Cell Distribution Width 14 % (10-15); White Blood Count 9.3 10^3/uL (3.5-10.8)
[2020-03-18 09:44] LABS: Albumin/Globulin Ratio 1.3 (1-3); BUN/Creatinine Ratio 13.8 (8-20); Calcium 8.4 mg/dL (8.6-10.3); EGFR African American 85.1 (>60); EGFR Non-African American 70.3 (>60); Globulin 2.3 g/dL (2-4); Potassium 4.4 mmol/L (3.5-5.0); Total Bilirubin 1.3 mg/dL (0.2-1.0); Total Protein 5.3 g/dL (6.4-8.9)
[2020-03-18 11:01] LABS: ABS Eosinophils 0.4 10^3/ul (0-0.6); ABS Lymphocytes 1.8 10^3/ul (1.0-4.8); ABS Monocytes 1.3 10^3/ul (0-0.8); ABS Neutrophils 5.8 10^3/ul (1.5-7.7); Eosinophil % 4.8 %
[2020-03-18] MEDS ORDERED: Magnesium Hydroxide LIQ 30 ML UDC PO PRN (11:25)
[2020-03-18] MEDS ORDERED: Furosemide 20 mg/2 ml IV VIAL IV SLOW PU ONE (16:17)
[2020-03-18] MEDS: Calcium/Vitamin D TAB 250/125 TAB PO SCH (21:00)
[2020-03-18] MEDS: CMCS:Anastrozole 1 mg TAB (NF) PO SCH (21:02)
[2020-03-18] MEDS: CMCS:Pravastatin 20 mg TAB (NF) PO SCH (21:04)
[2020-03-19 07:18] LABS: Hematocrit 24 % (35-47); Hemoglobin 8.3 g/dL (12.0-16.0); Mean Corpuscular HGB Conc 34 g/dL (31-36); Mean Corpuscular Hemoglobin 31 pg (27-31); Mean Corpuscular Volume 92 fL (80-97); Mean Platelet Volume 6.9 fL (7.4-10.4); Platelet Count 225 10^3/uL (150-450); Red Blood Count 2.66 10^6 /uL (3.70-4.87); Red Cell Distribution Width 14 % (10-15); White Blood Count 10.4 10^3/uL (3.5-10.8)
[2020-03-19 07:31] LABS: Albumin 2.9 g/dL (3.2-5.2); Albumin/Globulin Ratio 1.3 (1-3); BUN/Creatinine Ratio 13.8 (8-20); Calcium 8.3 mg/dL (8.6-10.3); EGFR African American 77.2 (>60); EGFR Non-African American 63.8 (>60); Globulin 2.3 g/dL (2-4); Potassium 4.3 mmol/L (3.5-5.0); Total Bilirubin 1.1 mg/dL (0.2-1.0); Total Protein 5.2 g/dL (6.4-8.9)
[2020-03-19 08:03] LABS: ABS Eosinophils 0.4 10^3/ul (0-0.6); ABS Lymphocytes 1.9 10^3/ul (1.0-4.8); ABS Monocytes 1.3 10^3/ul (0-0.8); ABS Neutrophils 6.8 10^3/ul (1.5-7.7); Eosinophil % 3.9 %; Lymphocyte % 18.2 %
[2020-03-19 10:39] VITALS: BP 132/51
[2020-03-19] MEDS: Morphine ER 30 mg TAB ** extended release PO SCH (11:50)
== END 2020-03-19 15:30 | disposition home or self-care (01) | DRG 481 ==
LOC: ED 08:09 → SSU 11:22 → MED 03-18 15:55
PROVIDERS: ADMIT Pediatrics; ATTEND Student in an Organized Health Care Education/Training Program

== ENCOUNTER 2020-04-23 11:22 | Inpatient (IN) ==
[2020-04-23] MEDS ORDERED: Morphine 4 MG/ML VIAL (1 ml) IV ONE (11:30)
[2020-04-23] MEDS ORDERED: Ondansetron 4 mg VIAL 2 MG/ML 2 ml VIAL IV ONE ×2 (11:30→13:26)
[2020-04-23] MEDS ORDERED: NS 0.9% 1000 ml BAG 1,000 ML IV ONE (11:30)
[2020-04-23 12:04] LABS: ABS Eosinophils 0.5 10^3/ul (0-0.6); ABS Lymphocytes 3.5 10^3/ul (1.0-4.8); ABS Monocytes 1.2 10^3/ul (0-0.8); ABS Neutrophils 4.5 10^3/ul (1.5-7.7); Eosinophil % 4.8 %; Hematocrit 25 % (35-47); Hemoglobin 8.2 g/dL (12.0-16.0); Lymphocyte % 35.9 %; Mean Corpuscular HGB Conc 33 g/dL (31-36); Mean Corpuscular Hemoglobin 31 pg (27-31); Mean Corpuscular Volume 94 fL (80-97); Nucleated Red Blood Cells % 0.2; Red Blood Count 2.62 10^6 /uL (3.70-4.87); Red Cell Distribution Width 16 % (10-15); White Blood Count 9.7 10^3/uL (3.5-10.8)
[2020-04-23 12:05] LABS: BUN/Creatinine Ratio 16.1 (8-20); C Reactive Protein 7.78 mg/L (<8.01); Calcium 9.7 mg/dL (8.6-10.3); EGFR African American 17.4 (>60); EGFR Non-African American 14.4 (>60); Magnesium 1.9 mg/dL (1.9-2.7)
[2020-04-23 12:15] LABS: Potassium 5.2 mmol/L (3.5-5.0)
[2020-04-23 12:49] LABS: Mean Platelet Volume 8.8 fL (7.4-10.4); Platelet Count 233 10^3/uL (150-450)
[2020-04-23] MEDS ORDERED: Ondansetron ODT 4 mg TAB 4 MG TAB PO PRN (15:44)
[2020-04-23] MEDS ORDERED: HYDROmorphone 0.5 MG/0.5 ML SYRINGE IV SLOW PU PRN (15:50)
[2020-04-23] MEDS ORDERED: Ciprofloxacin 400mg IVPREMIX 400 MG/200 ML BAG IVPB SCH (16:00)
[2020-04-23] MEDS ORDERED: metroNIDAZOLE IV 500 MG/100ML 500 MG/100 ML BAG IVPB SCH (18:00)
[2020-04-23] MEDS: cefTRIAXone 1 gm/50 mL NS BAG 1 GM/50 ML BAG IVPB SCH (18:06)
[2020-04-23] MEDS: NS 0.9% 1000 ml BAG 1,000 ML IV SCH (20:10)
[2020-04-23] MEDS: Morphine ER 30 mg TAB ** extended release PO SCH (20:10)
[2020-04-23] MEDS: metroNIDAZOLE IV 500 MG/100ML 500 MG/100 ML BAG IVPB SCH (21:12)
[2020-04-24] MEDS: oxyCODONE/Acetamin 5/325 mg TAB PO PRN (03:25)
[2020-04-24] MEDS: metroNIDAZOLE IV 500 MG/100ML 500 MG/100 ML BAG IVPB SCH ×3 (05:24→21:28)
[2020-04-24] MEDS: NS 0.9% 1000 ml BAG 1,000 ML IV SCH (05:27)
[2020-04-24 06:53] LABS: ABS Eosinophils 0.3 10^3/ul (0-0.6); ABS Lymphocytes 2.2 10^3/ul (1.0-4.8); ABS Monocytes 0.8 10^3/ul (0-0.8); ABS Neutrophils 2.4 10^3/ul (1.5-7.7); Eosinophil % 5.5 %; Hematocrit 27 % (35-47); Lymphocyte % 38.6 %; Mean Corpuscular HGB Conc 34 g/dL (31-36); Mean Corpuscular Hemoglobin 31 pg (27-31); Mean Corpuscular Volume 93 fL (80-97); Mean Platelet Volume 8.3 fL (7.4-10.4); Platelet Count 191 10^3/uL (150-450); Red Blood Count 2.89 10^6 /uL (3.70-4.87); Red Cell Distribution Width 16 % (10-15); White Blood Count 5.6 10^3/uL (3.5-10.8)
[2020-04-24 07:16] LABS: BUN/Creatinine Ratio 17.7 (8-20); Calcium 9.6 mg/dL (8.6-10.3); EGFR African American 18.9 (>60); EGFR Non-African American 15.7 (>60)
[2020-04-24 07:45] LABS: Potassium 5.5 mmol/L (3.5-5.0)
[2020-04-24] MEDS: Morphine ER 30 mg TAB ** extended release PO SCH ×2 (07:46→19:55)
[2020-04-24] MEDS ORDERED: Patiromer POWDER 8.4 GM PAK PO ONE (08:06)
[2020-04-24] MEDS ORDERED: Sodium Polystyrene ORAL.SUSP 15 GM/60 ML BTL PO ONE ×2 (08:07→15:17)
[2020-04-24] MEDS: Ondansetron 4 mg VIAL 2 MG/ML 2 ml VIAL IV PRN (11:01)
[2020-04-24] MEDS: Prochlorperazine 5 mg/ml 2 ml VIAL (10 mg) IV PRN (11:49)
[2020-04-24 12:27] LABS: BUN/Creatinine Ratio 17.5 (8-20); Calcium 9.7 mg/dL (8.6-10.3); EGFR African American 21.1 (>60); EGFR Non-African American 17.4 (>60)
[2020-04-24 13:07] LABS: Potassium 5.4 mmol/L (3.5-5.0)
[2020-04-24] MEDS ORDERED: Sodium Bicarb 8.4% Vial 50 ML 150 MEQ in D5W 1000 ml BAG 850 ML IV SCH (15:00)
[2020-04-24] MEDS: cefTRIAXone 1 gm/50 mL NS BAG 1 GM/50 ML BAG IVPB SCH (16:12)
[2020-04-24 17:01] LABS: Urine Appearance Clear; Urine Bilirubin Negative (Negative); Urine Blood Negative (Negative); Urine Color Yellow; Urine Glucose Negative (Negative); Urine Ketones Negative (Negative); Urine Nitrite Negative (Negative); Urine Protein Negative (Negative); Urine Specific Gravity 1.012 (1.010-1.030); Urine Urobilinogen Negative (Negative)
[2020-04-24 17:05] LABS: Urine Bacteria Absent (Absent); Urine Red Blood Cell Absent (Absent); Urine Squamous Epithelial Cell Present (Absent); Urine White Blood Cell Trace(0-5/hpf) (Absent)
[2020-04-24] MEDS ORDERED: Ondansetron ODT 4 mg TAB 4 MG TAB SL PRN (19:45)
[2020-04-24 20:05] LABS: BUN/Creatinine Ratio 18.2 (8-20); Blood Urea Nitrogen 44 mg/dL (6-24); CO2 Carbon Dioxide 18 mmol/L (22-32); Calcium 9.4 mg/dL (8.6-10.3); Chloride 108 mmol/L (101-111); EGFR African American 23.7 (>60); EGFR Non-African American 19.6 (>60); Glucose 100 mg/dL (70-100); Sodium 131 mmol/L (135-145)
[2020-04-24 21:23] LABS: Anion Gap 5 mmol/L (2-11)
[2020-04-24] MEDS: Heparin 5000 UNITS/ML 1 mL VIAL SUBCUT SCH (21:30)
[2020-04-24] MEDS: Sodium Bicarb 8.4% Vial 50 ML 150 MEQ in D5W 1000 ml BAG 850 ML IV SCH (21:37)
[2020-04-25] MEDS ORDERED: Cosyntropin 0.25 MG VIAL IV ONE ×2 (05:00→15:29)
[2020-04-25] MEDS: metroNIDAZOLE IV 500 MG/100ML 500 MG/100 ML BAG IVPB SCH ×2 (05:21→12:18)
[2020-04-25] MEDS: Heparin 5000 UNITS/ML 1 mL VIAL SUBCUT SCH ×3 (05:21→21:31)
[2020-04-25 05:23] LABS: ABS Eosinophils 0.4 10^3/ul (0-0.6); ABS Monocytes 0.5 10^3/ul (0-0.8); ABS Neutrophils 1.8 10^3/ul (1.5-7.7); Eosinophil % 8.4 %; Hematocrit 27 % (35-47); Hemoglobin 8.9 g/dL (12.0-16.0); Lymphocyte % 42.5 %; Mean Corpuscular HGB Conc 33 g/dL (31-36); Mean Corpuscular Hemoglobin 31 pg (27-31); Mean Corpuscular Volume 93 fL (80-97); Platelet Count 188 10^3/uL (150-450); Red Blood Count 2.91 10^6 /uL (3.70-4.87); Red Cell Distribution Width 16 % (10-15); White Blood Count 4.7 10^3/uL (3.5-10.8)
[2020-04-25 05:49] LABS: % Iron Saturation 25 % (15-55); Iron 58 ug/dL (50-212); Total Iron Binding Capacity 235 mcg/dL (250-450); Transferrin 168 mg/dL (203-362); Unsaturated Iron Binding < 220 ug/dL
[2020-04-25 05:54] LABS: Anion Gap 4 mmol/L (2-11); BUN/Creatinine Ratio 19.7 (8-20); Blood Urea Nitrogen 43 mg/dL (6-24); CO2 Carbon Dioxide 24 mmol/L (22-32); Calcium 9.2 mg/dL (8.6-10.3); Chloride 106 mmol/L (101-111); EGFR African American 26.8 (>60); EGFR Non-African American 22.1 (>60); Glucose 97 mg/dL (70-100); Potassium 4.5 mmol/L (3.5-5.0); Sodium 134 mmol/L (135-145)
[2020-04-25 06:12] LABS: Ferritin 171.8 ng/mL (11-307)
[2020-04-25 06:16] LABS: Vitamin B12 315 pg/mL (180-914)
[2020-04-25] MEDS: Morphine ER 30 mg TAB ** extended release PO SCH ×2 (08:26→21:29)
[2020-04-25 08:30] LABS: Urine Appearance Clear; Urine Bilirubin Negative (Negative); Urine Blood Negative (Negative); Urine Color Yellow; Urine Glucose Negative (Negative); Urine Ketones Negative (Negative); Urine Nitrite Negative (Negative); Urine Protein Negative (Negative); Urine Specific Gravity 1.011 (1.010-1.030); Urine Urobilinogen Negative (Negative)
[2020-04-25] MEDS: Sodium Bicarb 8.4% Vial 50 ML 150 MEQ in D5W 1000 ml BAG 850 ML IV SCH (08:40)
[2020-04-25 08:58] LABS: Urine Bacteria Absent (Absent); Urine Red Blood Cell Absent (Absent); Urine White Blood Cell Trace(0-5/hpf) (Absent)
[2020-04-25] MEDS: Prochlorperazine 5 mg/ml 2 ml VIAL (10 mg) IV PRN ×2 (09:10→17:00)
[2020-04-25] MEDS: NS 0.9% 1000 ml BAG 1,000 ML IV SCH (15:03)
[2020-04-25 16:33] LABS: TSH Ultra Thyroid Stim Horm 0.84 mcIU/mL (0.34-5.60)
[2020-04-25 16:57] LABS: Corrected Retic Count 0.9 % (0.5-1.5); Hematocrit for Retic CNT 26 % (35-47); Immature Retic Fraction 0.42; RBC Retic Count 2.85 10^6/uL (3.70-4.87)
[2020-04-25 17:09] LABS: Albumin 3.4 g/dL (3.2-5.2); Albumin/Globulin Ratio 1.5 (1-3); Globulin 2.2 g/dL (2-4); Indirect Bilirubin 0.4 mg/dL (0.3-1.0); Total Bilirubin 0.6 mg/dL (0.2-1.0); Total Protein 5.6 g/dL (6.4-8.9)
[2020-04-25] MEDS ORDERED: Magnesium Hydroxide LIQ 30 ML UDC PO PRN (17:28)
[2020-04-25] MEDS ORDERED: Senna TAB 8.6 mg TAB PO PRN (17:28)
[2020-04-26] MEDS ORDERED: Cosyntropin 0.25 MG VIAL IV ONE (05:00)
[2020-04-26] MEDS: Levothyroxine 100 MCG/5 ML VIAL IV SCH (06:42)
[2020-04-26] MEDS: Heparin 5000 UNITS/ML 1 mL VIAL SUBCUT SCH ×3 (06:42→22:09)
[2020-04-26] MEDS: Ondansetron 4 mg VIAL 2 MG/ML 2 ml VIAL IV PRN (08:31)
[2020-04-26] MEDS: Morphine ER 30 mg TAB ** extended release PO SCH ×2 (10:01→20:31)
[2020-04-26] MEDS: Metoclopramide 5 MG/ML VIAL (10 mg) IV PRN (10:03)
[2020-04-26 12:59] LABS: ABS Eosinophils 0.3 10^3/ul (0-0.6); ABS Lymphocytes 2.1 10^3/ul (1.0-4.8); ABS Monocytes 0.8 10^3/ul (0-0.8); Eosinophil % 5.6 %; Hematocrit 27 % (35-47); Hemoglobin 8.9 g/dL (12.0-16.0); Lymphocyte % 33.6 %; Mean Corpuscular HGB Conc 33 g/dL (31-36); Mean Corpuscular Hemoglobin 31 pg (27-31); Mean Corpuscular Volume 93 fL (80-97); Mean Platelet Volume 8.4 fL (7.4-10.4); Platelet Count 195 10^3/uL (150-450); Red Blood Count 2.88 10^6 /uL (3.70-4.87); Red Cell Distribution Width 16 % (10-15); White Blood Count 6.2 10^3/uL (3.5-10.8)
[2020-04-26 13:14] LABS: Albumin 3.3 g/dL (3.2-5.2); Albumin/Globulin Ratio 1.4 (1-3); BUN/Creatinine Ratio 15.2 (8-20); Calcium 9.1 mg/dL (8.6-10.3); EGFR African American 40.9 (>60); EGFR Non-African American 33.8 (>60); Globulin 2.3 g/dL (2-4); Magnesium 1.6 mg/dL (1.9-2.7); Potassium 4.2 mmol/L (3.5-5.0); Total Bilirubin 0.6 mg/dL (0.2-1.0); Total Protein 5.6 g/dL (6.4-8.9)
[2020-04-26] MEDS ORDERED: Hydrocortisone INJ 100 MG/2ML 2 ML VIAL IV ONE (13:34)
[2020-04-26 13:48] LABS: TSH Ultra Thyroid Stim Horm 0.64 mcIU/mL (0.34-5.60)
[2020-04-26 13:50] LABS: Free T4 1.28 ng/dL (0.61-1.12)
[2020-04-26] MEDS ORDERED: Magnesium Sulfate 2 gm BAG 2 GM/50 ML BAG IVPB ONE (13:54)
[2020-04-26] MEDS: NS 0.9% 1000 ml BAG 1,000 ML IV SCH (18:18)
[2020-04-27] MEDS: NS 0.9% 1000 ml BAG 1,000 ML IV SCH ×3 (02:57→21:42)
[2020-04-27] MEDS: Heparin 5000 UNITS/ML 1 mL VIAL SUBCUT SCH ×3 (06:39→22:44)
[2020-04-27] MEDS: Levothyroxine 100 MCG/5 ML VIAL IV SCH (06:42)
[2020-04-27 07:22] LABS: ABS Eosinophils 0.1 10^3/ul (0-0.6); ABS Lymphocytes 2.1 10^3/ul (1.0-4.8); ABS Monocytes 0.7 10^3/ul (0-0.8); ABS Neutrophils 2.3 10^3/ul (1.5-7.7); Eosinophil % 1.6 %; Hematocrit 28 % (35-47); Hemoglobin 9.3 g/dL (12.0-16.0); Lymphocyte % 41.1 %; Mean Corpuscular HGB Conc 34 g/dL (31-36); Mean Corpuscular Hemoglobin 31 pg (27-31); Mean Corpuscular Volume 93 fL (80-97); Mean Platelet Volume 7.8 fL (7.4-10.4); Platelet Count 182 10^3/uL (150-450); Red Blood Count 2.99 10^6 /uL (3.70-4.87); Red Cell Distribution Width 16 % (10-15); White Blood Count 5.2 10^3/uL (3.5-10.8)
[2020-04-27] MEDS: Morphine ER 30 mg TAB ** extended release PO SCH ×2 (07:35→19:25)
[2020-04-27 08:39] LABS: BUN/Creatinine Ratio 14.9 (8-20); EGFR Non-African American 53.7 (>60); Magnesium 1.7 mg/dL (1.9-2.7); Potassium 3.8 mmol/L (3.5-5.0)
[2020-04-27] MEDS: Metoclopramide 5 MG/ML VIAL (10 mg) IV PRN (12:28)
[2020-04-27] MEDS ORDERED: Albuterol HFA INHALER 8 gm MDI INH PRN (13:04)
[2020-04-27] MEDS: oxyCODONE/Acetamin 5/325 mg TAB PO PRN (13:10)
[2020-04-27] MEDS: CMC:Anastrozole 1 mg TAB (NF) PO SCH (14:48)
[2020-04-28] MEDS: Heparin 5000 UNITS/ML 1 mL VIAL SUBCUT SCH ×2 (05:50→13:44)
[2020-04-28] MEDS: NS 0.9% 1000 ml BAG 1,000 ML IV SCH ×2 (05:52→15:25)
[2020-04-28 06:38] LABS: BUN/Creatinine Ratio 9.1 (8-20); Calcium 8.6 mg/dL (8.6-10.3); EGFR African American 76.2 (>60); Magnesium 1.7 mg/dL (1.9-2.7); Potassium 3.8 mmol/L (3.5-5.0)
[2020-04-28] MEDS ORDERED: Magnesium Sulfate 2 gm BAG 2 GM/50 ML BAG IVPB ONE (08:34)
[2020-04-28] MEDS: CMC:Anastrozole 1 mg TAB (NF) PO SCH (08:49)
[2020-04-28] MEDS: Morphine ER 30 mg TAB ** extended release PO SCH (08:50)
[2020-04-28] MEDS ORDERED: CMC:Pravastatin 20 mg TAB (NF) PO SCH (09:00)
[2020-04-28 15:41] VITALS: BP 125/58
== END 2020-04-28 18:00 | disposition home health service (06) | DRG 644 ==
LOC: ED 11:22 → MEDTELE 11:22
PROVIDERS: ADMIT Internal Medicine; ATTEND Internal Medicine

== ENCOUNTER 2021-11-04 09:32 | Observation (INO) ==
[2021-11-04 10:05] LABS: ABS Eosinophils 0.2 10^3/ul (0-0.6); ABS Lymphocytes 2.5 10^3/ul (1.0-4.8); ABS Monocytes 0.7 10^3/ul (0-0.8); ABS Neutrophils 5.3 10^3/ul (1.5-7.7); Eosinophil % 2.5 %; Hematocrit 41 % (35-47); Hemoglobin 13.8 g/dL (12.0-16.0); Lymphocyte % 28.6 %; Mean Corpuscular HGB Conc 34 g/dL (31-36); Mean Corpuscular Hemoglobin 31 pg (27-31); Mean Corpuscular Volume 91 fL (80-97); Mean Platelet Volume 6.8 fL (7.4-10.4); Nucleated Red Blood Cells % 0.1; Platelet Count 234 10^3/uL (150-450); Red Blood Count 4.48 10^6 /uL (3.70-4.87); Red Cell Distribution Width 15 % (10-15); White Blood Count 8.6 10^3/uL (3.5-10.8)
[2021-11-04 10:11] LABS: INR 1.08 (0.86-1.15)
[2021-11-04 10:49] LABS: Albumin 4.3 g/dL (3.2-5.2); Albumin/Globulin Ratio 1.9 (1-3); Calcium 9.6 mg/dL (8.6-10.3); Globulin 2.3 g/dL (2-4); Potassium 3.7 mmol/L (3.5-5.0); Total Bilirubin 1.6 mg/dL (0.2-1.0); Total Protein 6.6 g/dL (6.4-8.9); eGFR CKD-EPI 67.1 (>60)
[2021-11-04] MEDS ORDERED: Iodixanol (CONTRAST) 320 MG/ML 100 ML SDV IV ONE (11:25)
[2021-11-04 11:26] LABS: High Sensitivity Troponin 1 Hr 6 pg/mL (<15)
[2021-11-04] MEDS ORDERED: oxyCODONE/Acetamin 5/325 mg TAB PO PRN (15:59)
[2021-11-04] MEDS ORDERED: Morphine ER 30 mg TAB ** extended release PO PRN ×2 (15:59→23:48)
[2021-11-04 16:34] LABS: HDL Cholesterol 52.6 mg/dL
[2021-11-04] MEDS: Heparin 5000 UNITS/ML 1 mL VIAL SUBCUT SCH ×2 (18:25→21:52)
[2021-11-04] MEDS ORDERED: Albuterol HFA INHALER 8 gm MDI INH PRN (19:43)
[2021-11-04] MEDS: Pravastatin 20 mg TAB (NF) PO SCH (21:26)
[2021-11-04 22:56] LABS: High Sensitivity Troponin 1 Hr 9 pg/mL (<15)
[2021-11-05] MEDS: Heparin 5000 UNITS/ML 1 mL VIAL SUBCUT SCH ×3 (05:57→21:09)
[2021-11-05] MEDS ORDERED: Levothyroxine 100 MCG/5 ML VIAL IV SCH (06:00)
[2021-11-05 06:29] LABS: Calcium 8.8 mg/dL (8.6-10.3); Potassium 3.9 mmol/L (3.5-5.0); eGFR CKD-EPI 76.1 (>60)
[2021-11-05] MEDS: Mometasone/Formoter 200/5 MDI INH SCH ×2 (07:24→20:52)
[2021-11-05] MEDS ORDERED: Perflutren Lipid Microsphere 3 ML VIAL ONE (10:08)
[2021-11-05] MEDS: Calcium (OSCAL) 500 mg TAB PO SCH (11:07)
[2021-11-05] MEDS: Potassium Chlor 10 meq TAB PO SCH (11:08)
[2021-11-05] MEDS ORDERED: Regadenoson 0.4 MG/5 ML SYRINGE ONE (13:23)
[2021-11-05] MEDS ORDERED: Aminophylline 25 MG/ML VIAL ONE (13:23)
[2021-11-05] MEDS ORDERED: Ondansetron 4 mg VIAL 2 MG/ML 2 ml VIAL ONE (13:49)
[2021-11-05] MEDS ORDERED: Al Hydrox/Mg Hydrox/Simet LIQ 30 ML UDC PO PRN (17:55)
[2021-11-05] MEDS: Pravastatin 20 mg TAB (NF) PO SCH (20:55)
[2021-11-06] MEDS: Heparin 5000 UNITS/ML 1 mL VIAL SUBCUT SCH ×2 (06:16→15:35)
[2021-11-06 07:07] LABS: Calcium 9.4 mg/dL (8.6-10.3); Magnesium 2.3 mg/dL (1.9-2.7); Potassium 4.1 mmol/L (3.5-5.0); eGFR CKD-EPI 73.9 (>60)
[2021-11-06] MEDS: Calcium (OSCAL) 500 mg TAB PO SCH (07:44)
[2021-11-06] MEDS: Potassium Chlor 10 meq TAB PO SCH (07:46)
[2021-11-06] MEDS: Mometasone/Formoter 200/5 MDI INH SCH (07:55)
[2021-11-06] MEDS ORDERED: NS 0.9% 1000 ml BAG 1,000 ML IV SCH (08:30)
[2021-11-06 09:30] LABS: Activated Partial Thrombo Time 28.5 seconds (26.0-38.0); INR 1.04 (0.86-1.15)
[2021-11-06] MEDS ORDERED: Nitroglycerin 0.2 mg/hr PATCH (5 mg) TRANSDERM SCH (11:00)
[2021-11-06] MEDS ORDERED: Isosorbide Mononit ER 30mg TAB PO SCH (11:00)
[2021-11-06 17:18] VITALS: BP 128/71
[2021-11-06] MEDS ORDERED: Pravastatin 20 mg TAB (NF) PO SCH (21:00)
[2021-11-07 11:15] LABS: Coagulation F VIII Activity 158 % (55 - 200); von Willebrand Factor Activity 107 % (55 - 200)
== END 2021-11-06 18:35 | disposition home or self-care (01) ==
LOC: EDHOLD 09:32 → ED 09:32 → MEDTELE 17:45
PROVIDERS: ADMIT Internal Medicine; ATTEND Internal Medicine